=== PATIENT | male | born 1970 | race Caucasian/White ===

== ENCOUNTER 2021-03-09 15:51 | Inpatient (IN) | payer OTHER, BC ==
[~2021-03-09] VITALS: Ht 188 cm; Wt 126.2 kg
--- NOTE | 2021-03-09 16:03 | PHYS DOC ---
Past Medical History Past Medical History: No Pertinent History Past Surgical History: No Surgical History General Adult EDM: Chief Complaint: left ankle dislocation HPI: HPI: Patient is a 50-year-old male who was transferred here from [facility] emergency department due to right ankle dislocation. 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 He looked down , noted left ankle was dislocated, he then popped it back in place and was brought to the ER at [facility] from the job site from his employer. Patient states he is unable to bear weight on his foot. Patient states last oral intake was last evening. In the emergency department his syndrome, patient was evaluated, x- rays show dislocation of the right ankle. The ER physician did attempt to reduce the dislocation twice with conscious sedation but repeat x-rays shown persistent dislocation of the right ankle. The ER physician there contacted the foot and ankle specialist Dr. Mojica who recommend patient to be transferred to [place] emergency department for him to evaluate patient in the ER here. Review of Systems: Review of Systems: Constitutional: Denies fever or chills. [] Eyes: Denies change in visual acuity. [] HENT: Denies nasal congestion or sore throat. [] Respiratory: Denies cough or shortness of breath. [] Cardiovascular: Denies chest pain or edema. [] GI: Denies abdominal pain, nausea, vomiting, bloody stools or diarrhea. [] : Denies dysuria. [] Musculoskeletal: Positive for LEFT ankle pain, LEFT LEG PAIN Integument: Denies rash. [] Neurologic: Denies headache, focal weakness or sensory changes. [] Endocrine: Denies polyuria or polydipsia. [] Lymphatic: Denies swollen glands. [] Psychiatric: Denies depression or anxiety. [] Heart Score: C/O Chest Pain: N/A Risk Factors: Risk Factors: DM, Current or recent (<one month) smoker, HTN, HLP, family history of CAD, obesity. Risk Scores: Score 0 - 3: 2.5% MACE over next 6 weeks - Discharge Home Score 4 - 6: 20.3% MACE over next 6 weeks - Admit for Clinical Observation Score 7 - 10: 72.7% MACE over next 6 weeks - Early Invasive Strategies Physical Exam: PE: Constitutional: Well developed, well nourished, no acute distress, non-toxic appearance. [] HENT: Normocephalic, atraumatic, bilateral external ears normal, oropharynx moist, no oral exudates, nose normal. [] Eyes: PERRLA, EOMI, conjunctiva normal, no discharge. [] Neck: Normal range of motion, no tenderness, supple, no stridor. [] Cardiovascular:Heart rate regular rhythm, no murmur [] Lungs & Thorax: Bilateral breath sounds clear to auscultation [] Abdomen: Bowel sounds normal, soft, no tenderness, no masses, no pulsatile masses. [] Skin: Warm, dry, no erythema, no rash. [] Back: No tenderness, no CVA tenderness. [] Extremities: left leg and ankle in stir up splint. The splint was removed by Dr. MOJICA, EXAMINED SHOWN left ANKLE SWELLING WITH HEMATOMA, left ANKLE IS UNSTABLE. THERE IS GOOD DORSALID PEDIS PULSE BY DOPPLER. NO OPEN WOUND. There is tenderness to palpation along the proximal fibula. Neurologic: Alert and oriented X 3, normal motor function, normal sensory function, no focal deficits noted. [] Psychologic: Affect normal, judgement normal, mood normal. [] Current Patient Data: Labs: Current Medications Medications (Trade) Dose Ordered Sig/Onur Route PRN Reason Start Time Stop Time Status Last Admin Dose Admin Propofol (Diprivan) 200 mg 1X ONCE IV 03/09/21 16:15 03/09/21 16:18 DC 03/09/21 16:23 Sodium Chloride 1,000 ml @ 1,000 mls/hr 1X ONCE IV 03/09/21 16:15 03/09/21 17:14 DC 03/09/21 16:26 Ondansetron HCl (Zofran) 4 mg 1X ONCE IVP 03/09/21 16:15 03/09/21 16:18 DC 03/09/21 16:19 Fentanyl Citrate (Fentanyl 2ml Vial) 100 mcg STK-MED ONCE .ROUTE 03/09/21 16:29 03/09/21 16:29 DC Propofol (Diprivan) 200 mg 1X ONCE IV 03/09/21 16:45 03/09/21 17:17 DC Fentanyl Citrate (Fentanyl 2ml Vial) 100 mcg STK-MED ONCE .ROUTE 03/09/21 16:42 03/09/21 16:43 DC Cefazolin Sodium/ Dextrose 50 ml @ 100 mls/hr 1X ONCE IV 03/09/21 17:00 03/09/21 17:29 Fentanyl Citrate (Fentanyl 2ml Vial) 100 mcg 1X ONCE IVP 03/09/21 17:15 03/09/21 17:18 DC Acetaminophen (Tylenol) 650 mg PRN Q6HRS PRN PO MILD PAIN / TEMP > 100.3'F 03/09/21 17:15 Ondansetron HCl (Zofran) 4 mg PRN Q4HRS PRN IVP NAUSEA/VOMITING 03/09/21 17:15 Fentanyl Citrate (Fentanyl 2ml Vial) 25 mcg PRN Q3HRS PRN IVP SEVERE PAIN 7-10 03/09/21 17:15 Acetaminophen/ Hydrocodone Bitart (Lortab 5/325) 1 tab PRN Q4HRS PRN PO MILD PAIN, 2ND CHOICE 03/09/21 17:30 Acetaminophen/ Hydrocodone Bitart (Lortab 5/325) 2 tab PRN Q4HRS PRN PO MODERATE PAIN, SEVERE PAIN 03/09/21 17:30 Senna/Docusate Sodium (Senna Plus) 1 tab BID PO 03/09/21 21:00 Magnesium Hydroxide (Milk Of Magnesia) 2,400 mg PRN Q12HR PRN PO CONSTIPATION 03/09/21 17:30 EKG: EKG: [] Course & Med Decision Making: Course & Med Decision Making Pertinent Labs and Imaging studies reviewed. (See chart for details) Patient is a 50-year-old male who was brought here by EMS from [facility] emergency department due to left ankle dislocation, unstable. Patient was seen by jewel bearing facer Dr. Mojica in the ED, he attempted to reduce the dislocation but patient continued to have recurrent dislocation, left ankle is unstable. Dr. Mojica will take patient to the operating room for reduction. X-rays of the left tib-fib ultrasound show proximal fibula fracture, spiral fracture. Discussed with Dr. Goodson, hospitalist service, agreed to admit the patient Anupama Disclaimer: Dragon Disclaimer: This electronic medical record was generated, in whole or in part, using a voice recognition dictation system. Departure Departure Impression: Primary Impression: Unstable left ankle Additional Impressions: Dislocation of ankle, left, closed Fracture of left proximal fibula Disposition: 09 ADMITTED INPATIENT Admitting Physician: JOE (DR. ANDIE MORA) Condition: STABLE Procedural Sedation Proc Sed Indication: Left ankle dislocation Consent: I have discussed with the patient and/or the patient medical office representative the indication, alternatives, and the possible risks and /or complications of the planned procedure and the anesthesia methods. The patient and/or patient medical office representative appear to understand and agree to proceed. Pre-Sedation Documentation and Exam: Patient was awake, alert, oriented to place, time and person, no focal neurological deficit, RRR, LUNG SOUND CLEAR. Airway Assessment: normal. Prior History of Anesthesia Complications: none. ASA Classification: 1 Sedation/ Anesthesia Plan: IV PROPOFOL Medications Used: see nursing notes. Monitoring and Safety: The patient was placed on a cardiac rehab nurse and vital signs, pulse oximetry and level of consciousness were continuously evaluated throughout the procedure. The patient was closely monitored until recovery from the medications was complete and the patient had returned to baseline status. Respiratory therapy was on standby at all times during the procedure. (The following sections must be completed) Post-Sedation Vital Signs: SEE NURSE NOTES. Post-Sedation Exam:PATIENT IS BACK TO BASE LINE. f Complications: none. MARCUS SIGALA DO Mar 09, 2021 16:03
[2021-03-09] MEDS ORDERED: PROPOFOL 10 MG/ML (20ML) VIAL. IV ONE ×3 (16:15→18:06)
[2021-03-09] MEDS ORDERED: ONDANSETRON PF 4 MG/2 ML VIAL. IVP ONE (16:15)
[2021-03-09] MEDS ORDERED: IV NORMAL SALINE 1000ML BAG 1,000 ML IV ONE (16:15)
[2021-03-09 16:20] VITALS: BP 180/109
[2021-03-09] MEDS ORDERED: fentaNYL PF VIAL 100 MCG/2 ML VIAL ONE ×5 (16:29→19:50)
[2021-03-09] MEDS ORDERED: ACETAMINOPHEN 325 MG TABLET. PO PRN (17:15)
[2021-03-09] MEDS ORDERED: fentaNYL PF VIAL 100 MCG/2 ML VIAL IVP ONE (17:15)
[2021-03-09] MEDS ORDERED: ONDANSETRON PF 4 MG/2 ML VIAL. IVP PRN ×2 (17:15→20:15)
--- NOTE | 2021-03-09 17:21 | PDOC1 ---
History and Physical Date of Admission Date of Admission DATE: 03/09/21 TIME: 17:19 Identification/Chief Complaint Chief Complaint Left ankle pain Source Source: Patient History of Present Illness History of Present Illness Mr Lund is a 50-year-old male with PMHx insomnia that presented to [facility] ED in [place], [place] today with left ankle pain. Patient states prior to arrival patient was climbing down from the top of the roof down to a lower part of the roof and twisted his foot he felt a weird sensation in his left ankle, he then popped it back in place and was brought here from the job site from his employer. Patient states he is unable to bear weight on his foot. Patient states last oral intake was last evening. Vital Signs: initial VS: HR 107, 145/107, RR16 Attempted reduction x2 with fentanl, etomidate with no success. contacted [place], was transferred for podiatry consultation for likely unstable ankle. Ankle splinted, neurovascularly intact. Pain controlled with fentanyl. Denies smoking and alcohol use history, takes seroquel for sleep. Has had 2 doses of moderna COVID 19 vaccine. Labs with WBC 7.2, Hb 14.4, platelets 126, NA 140, K4.3, BUN 6, CR 0.6, glucose 99, calcium 7.3, vitamin D 25.3, bilirubin 0.7, AST 174, ALT 181, alkaline phosphatase 108, CK 274, albumin 3.4, rapid COVID-19 negative EKG sinus tachycardia rate of 106 bpm with leftward axis no ST elevations or T WI. QTc 475. Attempted repeat reduction in ED at [facility] with unstable ankle unable to reduce. X-rays of the left tib-fib show proximal fibula fracture, spiral fracture. Admitted for further care and operative repair of left ankle dislocation. Past Medical History Cardiovascular: No pertinent hx Pulmonary: No pertinent hx Psych: Other (insomnia) Past Surgical History Past Surgical History: No pertinent history Family History Family History Reviewed Family History: Family History Unknown Social History Smoke: No ALCOHOL: none Drugs: None Current Problem List Problem List Problems Medical Problems: (1) Dislocation of ankle, left, closed Status: Acute (2) Unstable left ankle Status: Acute Current Medications Current Medications Current Medications Propofol (Diprivan) 200 mg 1X ONCE IV Last administered on 03/09/21at 16:23; Start 03/09/21 at 16:15; Stop 03/09/21 at 16:18; Status DC Sodium Chloride 1,000 ml @ 1,000 mls/hr 1X ONCE IV Last administered on 03/09/21at 16:26; Start 03/09/21 at 16:15; Stop 03/09/21 at 17:14; Status DC Ondansetron HCl (Zofran) 4 mg 1X ONCE IVP Last administered on 03/09/21at 16:19; Start 03/09/21 at 16:15; Stop 03/09/21 at 16:18; Status DC Fentanyl Citrate (Fentanyl 2ml Vial) 100 mcg STK-MED ONCE .ROUTE ; Start 03/09/21 at 16:29; Stop 03/09/21 at 16:29; Status DC Propofol (Diprivan) 200 mg 1X ONCE IV ; Start 03/09/21 at 16:45; Stop 03/09/21 at 17:17; Status DC Fentanyl Citrate (Fentanyl 2ml Vial) 100 mcg STK-MED ONCE .ROUTE ; Start 03/09/21 at 16:42; Stop 03/09/21 at 16:43; Status DC Cefazolin Sodium/ Dextrose 50 ml @ 100 mls/hr 1X ONCE IV ; Start 03/09/21 at 17:00; Stop 03/09/21 at 17:29 Fentanyl Citrate (Fentanyl 2ml Vial) 100 mcg 1X ONCE IVP ; Start 03/09/21 at 17:15; Stop 03/09/21 at 17:18; Status DC Acetaminophen (Tylenol) 650 mg PRN Q6HRS PRN PO MILD PAIN / TEMP > 100.3'F; Start 03/09/21 at 17:15 Ondansetron HCl (Zofran) 4 mg PRN Q4HRS PRN IVP NAUSEA/VOMITING; Start 03/09/21 at 17:15 Fentanyl Citrate (Fentanyl 2ml Vial) 25 mcg PRN Q3HRS PRN IVP SEVERE PAIN 7-10; Start 03/09/21 at 17:15 Allergies Allergies: Coded Allergies: No Known Drug Allergies (Unverified , 03/09/21) ROS General: No: Chills, Night Sweats, Fatigue, Malaise, Appetite, Other PSYCHOLOGICAL ROS: No: Anxiety, Behavioral Disorder, Concentration difficultie, Decreased libido, Depression, Disorientation, Hallucinations, Hostility, Irritablity, Memory difficulties, Mood Swings, Obsessive thoughts, Physical abuse, Sexual abuse, Sleep disturbances, Suicidal ideation, Other Eyes: No Blurry vision, No Decreased vision, No Double vision, No Dry eyes, No Excessive tearing, No Eye Pain, No Itchy Eyes, No Loss of vision, No Photophobia, No Scotomata, No Uses contacts, No Uses glasses, No Other HEENT: No: Heacaches, Visual Changes, Hearing change, Nasal congestion, Nasal discharge, Oral lesions, Sinus pain, Sore Throat, Epistaxis, Sneezing, Snoring, Tinnitus, Vertigo, Vocal changes, Other ALLERGY AND IMMUNOLOGY: No: Hives, Insect Bite Sensitivity, Itchy/Watery Eyes, Nasal Congestion, Post Nasal Drip, Seasonal Allergies, Other Hematological and Lymphatic: No: Bleeding Problems, Blood Clots, Blood Chirinos sfusions, Brusing, Night Sweats, Pallor, Swollen Lymph Nodes, Other ENDOCRINE: No: Breast Changes, Galactorrhea, Hair Pattern Changes, Hot Flashes, Malaise/lethargy, Mood Swings, Palpitations, Polydipsia/polyuria, Skin Changes, Temperature Intolerance, Unexpected Weight Changes, Other Breast: No New/Changing Breast Lumps, No Nipple changes, No Nipple discharge, No Other Respiratory: No: Cough, Hemoptysis, Orthopnea, Pleuritic Pain, Shortness of breath, SOB with excertion, Sputum Changes, Stridor, Tachypnea, Wheezing, Other Cardiovascular: No Chest Pain, No Palpitations, No Orthopnea, No Paroxysmal Noc. Dyspnea, No Edema, No Lt Headedness, No Other Gastrointestinal: No Nausea, No Vomiting, No Abdominal Pain, No Diarrhea, No Constipation, No Melena, No Hematochezia, No Other Genitourinary: No Dysuria, No Frequency, No Incontinence, No Hematuria, No Retention, No Discharge, No Urgency, No Pain, No Flank Pain, No Other, No , No , No , No , No , No , No Musculoskeletal: Yes Gait Disturbance, Yes Joint Pain, Yes Joint Swelling; No Joint Stiffness, No Muscle Pain, No Muscular Weakness, No Pain In:, No Swelling In:, No Other Neurological: No Behavorial Changes, No Bowel/Bladder ControlChng, No Confusion, No Dizziness, No Gait Disturbance, No Headaches, No Impaired Coord/balance, No Memory Loss, No Numbness/Tingling, No Seizures, No Speech Problems, No Tremors, No Visual Changes, No Weakness, No Other Skin: No Dry Skin, No Eczema, No Hair Changes, No Lumps, No Mole Changes, No Mottling, No Nail Changes, No Pruritus, No Rash, No Skin Lesion Changes, No Other, No Acne Physical Exam General: Alert, Oriented X3, Cooperative, moderate distress HEENT: Atraumatic, PERRLA, EOMI, Mucous membr. moist/pink Lungs: Clear to auscultation, Normal air movement Heart: S1S2, RRR, no thrills, no rubs, no gallops, no murmurs Abdomen: Normal bowel sounds, Soft, No tenderness, No hepatosplenomegaly, No masses Rectal Exam: not examined Extremities: No clubbing, No cyanosis, Normal pulses, Other (left ankle swollen, splinted) Skin: No rashes, No breakdown, No significant lesion Neuro: Normal speech, Strength at 5/5 X4 ext, Normal tone, Sensation intact, Cranial nerves 3-12 NL, Reflexes 2+ Psych/Mental Status: Mental status NL, Mood NL Images Images XR EXAM OF ANKLE_LEFT 3V 03/09/21 at 1023AM Findings: There is lateral and posterior dislocation of the talus with respect to the tibia. There is widening of the space between the distal tibia and fibula consistent with disruption of the distal interosseous ligament and anterior/posterior tibiofibular ligaments and disruption of the deltoid ligament. Small intra- articular loose bodies are evident. Otherwise no acute fracture is seen. No lytic process is seen. IMPRESSION: Dislocation of the left ankle with ligament tears. Intra-articular loose bodies are seen but no acute fracture is evident. Left ankle 3 views. Postreduction ankle dislocation 3 views were taken of the left ankle. Comparison is made with the earlier images. There is persistent lateral subluxation of the talus relative to the tibia. There is also mild posterior subluxation. Positioning is only mildly improved compared to the original images. Ankle is in a splint. IMPRESSION: 1. Mild improvement but persistent lateral subluxation of the talus relative to the tibia. Repeat Tib/fib and ankle radiographs 1700: 1. Attempted closed reduction of left ankle fracture dislocation with persistent widening of the ankle mortise which is widened by approximately 11 mm medially. Subtle contour deformity involving the lateral malleolus could represent nondisplaced fracture. 2. There is a obliquely oriented fracture involving the proximal fibular diaphysis. Findings are not significantly displaced although single view is provided. VTE Prophylaxis Ordered VTE Prophylaxis Devices: No VTE Pharmacological Prophylaxi: Yes Assessment/Plan Assessment/Plan A/P: Dislocation of ankle, left, closed - unstable ankle unable to reduce despite mu ltiple attempts. No further testing required prior to planned surgery. PO and IV pain meds ordered Transaminitis - unclear etiology, patient denies alcohol use, possibly related to seroquel. Will trend. COVID 19 negative Thrombocytopenia - unclear etiology, potentially related to seroquel. will trend Vitamin D insufficiency - daily cholecalciferol replacement Insomnia - on seroquel for sleep FEN- NPO PPX -post op asa FULL CODE Dispo - inpatient Justifications for Admission General Conditions Poss tachycardia?: Yes Justification for admission: Patient has tachycardia (> 100 beats per minute) which is not readily corrected by appropriate treatment within 12 to 24 hours. Other Justification ANDIE MORA MD Mar 09, 2021 17:21
--- NOTE | 2021-03-09 17:21 | PDOC2 ---
CONSULT Date of Consult Date of Consult DATE: 03/09/21 TIME: 17:19 Reason for Consult Reason for Consult: Left ankle fracture Source Source: Patient History of Present Illness Reason for Visit: Patient slid and fell on the roof while at work and sustained an external rotation of the left ankle. He denied loss of consciousness, injury elsewhere but the left ankle. The injury was sustained at 8 AM. Subsequent evaluation at [place] consisted of x-ray suggesting significant diastases to the medial gutter space. Close reduction was attempted twice and failed twice. The fracture was also noted significantly unstable which was concerning for medial skin tenting, vascular/tendon impingement or entrapment. Patient was then transferred to [place] for further reduction or possible surgical intervention. At bedside, patient relates upwards to 5 out of 10 throbbing sharp pain to the medial ankle. Patient denies any numbness or tingling sensation. Patient denies any cold sensation to the foot. Patient denied prior history of nonunion or delayed union. He is overall healthy, non-smoker, nondiabetic. Current Problem List Problem List Problems Medical Problems: (1) Dislocation of ankle, left, closed Status: Acute (2) Unstable left ankle Status: Acute Current Medications Current Medications Current Medications Propofol (Diprivan) 200 mg 1X ONCE IV Last administered on 03/09/21at 16:23; Start 03/09/21 at 16:15; Stop 03/09/21 at 16:18; Status DC Sodium Chloride 1,000 ml @ 1,000 mls/hr 1X ONCE IV Last administered on 03/09/21at 16:26; Start 03/09/21 at 16:15; Stop 03/09/21 at 17:14; Status DC Ondansetron HCl (Zofran) 4 mg 1X ONCE IVP Last administered on 03/09/21at 16:19; Start 03/09/21 at 16:15; Stop 03/09/21 at 16:18; Status DC Fentanyl Citrate (Fentanyl 2ml Vial) 100 mcg STK-MED ONCE .ROUTE ; Start 03/09/21 at 16:29; Stop 03/09/21 at 16:29; Status DC Propofol (Diprivan) 200 mg 1X ONCE IV ; Start 03/09/21 at 16:45; Stop 03/09/21 at 17:17; Status DC Fentanyl Citrate (Fentanyl 2ml Vial) 100 mcg STK-MED ONCE .ROUTE ; Start 02/26 07/19 at 16:42; Stop 03/09/21 at 16:43; Status DC Cefazolin Sodium/ Dextrose 50 ml @ 100 mls/hr 1X ONCE IV ; Start 03/09/21 at 17:00; Stop 03/09/21 at 17:29 Fentanyl Citrate (Fentanyl 2ml Vial) 100 mcg 1X ONCE IVP ; Start 03/09/21 at 17:15; Stop 03/09/21 at 17:18; Status DC Acetaminophen (Tylenol) 650 mg PRN Q6HRS PRN PO MILD PAIN / TEMP > 100.3'F; Start 03/09/21 at 17:15 Ondansetron HCl (Zofran) 4 mg PRN Q4HRS PRN IVP NAUSEA/VOMITING; Start 03/09/21 at 17:15 Fentanyl Citrate (Fentanyl 2ml Vial) 25 mcg PRN Q3HRS PRN IVP SEVERE PAIN 7-10; Start 03/09/21 at 17:15 Allergies Allergies: Coded Allergies: No Known Drug Allergies (Unverified , 03/09/21) ROS Review of System CONSTITUTIONAL: No fever. No chills. No dizziness. No weakness. CARDIOVASCULAR: No chest pain. No palpitations. No lower extremity edema. RESPIRATORY: No shortness of breath, cough, pain with respiration. No hemoptysis. No dyspnea. GASTROINTESTINAL: Normal appetite. No nausea, vomiting, diarrhea. GENITOURINARY: No frequency, urgency, nocturia. No hematuria or dysuria. MUSCULOSKELETAL: Refer to HPI INTEGUMENTARY: No abrasions, lymphangitis. NEUROLOGIC: No numbness or tingling of the extremities. No weakness. PSYCHIATRIC: No confusion. ENDOCRINE: No fatigue. No weakness. HEMATOLOGICAL: No bleeding. No petechiae. No bruising. ALLERGIES: No asthma. No urticaria Physical Exam Physical Exam General: AOx3, pleasant without distress Left lower extremity exam: VASC: -DP palpable, PT nonpalpable. Bedside Doppler noted biphasic PT on the left lower extremity - Capillary refill <5 seconds - [+] non-pitting edema circumferentially to the ankle joint - [-] Ecchymosis NEURO: - Gross sensation intact via light touch - [-] Tinel sign along the sural n. DERM: - Skin envelope intact without fx blisters, however there is a significant skin tenting to the medial malleolus - Skin line is diminished -The foot is sitting in a significant adductus position concerning for PT entrapment/tenting to the posterior ankle MUSC: - [+] TTP to the distal medial mal -Significant forefoot adduction and plantar flexion concerning for PT entrapment -Gross instability to the talus across the ankle joint - [-] TTP to the 5th styloid process, cuboid, navicular, calc [id number] squeeze - Able to move digits x 5 - Muscle strength deferred - Calf is soft and nontender -No TTP to Lisfranc stress test or to the medial plantar compartment Assessment/Plan Assessment/Plan Bimalleolar equivalent left ankle fracture with significant medial gutter diastases, syndesmotic joint diastases - Discussed with Pt the nature and prognosis of left ankle bimalleolar fracture, unstable, and the therapeutic/surgical options for pt's condition. Discussed with Pt about need of surgical repair of the injured ankle including detail procedure, risks vs benefits of procedure, and pre-/post-op courses. - Closed reduction was performed under conscious sedation, and bulky read posterior splint with sugar tong was applied with ankle held inverted and near 90 degrees. Post-reduction film continued to remark significant diastases to the medial gutter. In the setting of adducted and plantarflexed forefoot concerning for PT entrapment or incarceration, the decision was made to bedside perform sterile and minimal stab incision measured 1 to 1.5 cm just at the posterior margin of the medial malleolus near the ankle joint level. Betadine skin prep was carried out and a straight linear incision was performed. The deep tissue fascia was noted ruptured along with deltoid ligament. Moderate amount of hematoma was exsanguinated from the mini open incision. The PT tendon was freed from the posterior medial gutter. 500 cc of saline was used to irrigate the medial ankle incision site. Then 2 simple interrupted 3-0 nylon was used to approximate the skin. The site was dressed with Xeroform. Then another close reduction was performed and the left lower extremity was splinted with ankle held in near 90 degrees. Post reduction x-ray was improved however still noted diastases to the medial ankle gutter. I discussed with patient that due to the unstable nature of the ankle fracture, limited evaluation and reduction of the PT tendon from the ankle gutter, I recommended emergent indirect syndesmotic repair to stabilize the ankle and the further investigate the PT tendon the flexor tendon, and deltoid ligament with possible direct repair as well. Patient understands that due to the swelling status, there is slightly increased risk of delayed skin healing, complications. However given the unstable nature, and PT tendon status concern, patient consented for the emergent surgery with open reduction internal fixation of left ankle with possible PT, deltoid repair. In addition, I may also investigate the tibialis anterior tendon and make sure that it is in good condition. -Status post 2 g of Ancef IV -Remain n.p.o. -Pending Covid swab test -Patient to be admitted as an inpatient after surgery, depends on intraoperative finding, we may stage for soft tissue repair in a few days. Because an emergent mini open incision was made at the bedside for reduction, I will treat this as an open fracture as well with 3 days of IV antibiotics after washout and repair. -Elevate surgical foot with toes above the heart 45 minutes/h -Ice behind the knee -Strict nonweightbearing to left lower extremity -3 days of IV Ancef after surgery Informed Consent Discussion: I have discussed the purpose, risks, benefits, and alternatives to the procedure and plan of care including potential side effects and complications, both of which may be severe and require additional surgery and/or procedures to treat this with the patient/guardian(s). We discussed the risks and benefits of alternative treatment options and the likelihood of achieving the desired outcome with surgery. Procedure specific discussion is documented below. The risks, benefits and alternatives of the proposed surgery were discussed with the patient, including the option of further non-operative treatment. The possibility of perioperative complications leading to disability and were explained. Patient understands the risks of surgery include but are not limited to failure of the procedure, delayed or non-healing wound, bleeding, infection, venous thrombus/embolus, nerve, vessel, tendon and bone damage, the complications of anesthesia, reaction to sutures or other implanted material, stiffness, chronic pain/swelling, malunion/nonunion, the need for other operations and future revision surgery. No guarantees were given or implied. The patient's questions were answered in depth and patient is willing to proceed. GARRICK SAWANT DPM Mar 09, 2021 17:21
--- NOTE | 2021-03-09 17:26 | RAD ---
XR LT TIBIA + FIBULA, XR EXAM OF ANKLE_LEFT 3V 03/09/2021 5:21 PM INDICATION: Postreduction of left ankle dislocation COMPARISON: None available. TECHNIQUE: Single view left ankle and 2 views of the left tibia and fibula are provided. FINDINGS/ IMPRESSION: 1. Attempted closed reduction of left ankle fracture dislocation with persistent widening of the ankl e mortise which is widened by approximately 11 mm medially. Subtle contour deformity involving the la teral malleolus could represent nondisplaced fracture. 2. There is a obliquely oriented fracture involving the proximal fibular diaphysis. Findings are not significantly displaced although single view is provided. Electronically signed by: Adriana Stewart MD (03/09/2021 5:24 PM) [id number]
--- NOTE | 2021-03-09 17:29 | RAD ---
Left ankle 3 views. HISTORY: Post reduction 3 views were taken of the left ankle. Ankle is been reduced into better position compared to the prio r image. There is still mild widening of the ankle mortise medially. IMPRESSION: 1. Improved positioning of the ankle dislocation. Electronically signed by: Harsha Rodriguez MD (03/09/2021 5:27 PM) [facility]
[2021-03-09] MEDS ORDERED: MAGNESIUM HYDROXIDE 2,400 MG/30 ML ORAL.SUSP. PO PRN (17:30)
[2021-03-09] MEDS ORDERED: HYDROcodone/APAP 5/325MG 1 TAB TABLET PO PRN ×2 (17:30)
[2021-03-09 17:43] LABS: BASO % 1 % (0-3); EOS % 0 % (0-3); HEMATOCRIT 41.8 % (39.0-53.0); HEMOGLOBIN 14.4 g/dL (13.0-17.5); LYMPH # 1.1 x10^3/uL (1.0-4.8); LYMPH % 15 % (24-48); MEAN CORPUSCULAR HEMOGLOBIN 34 pg (25-35); MEAN CORPUSCULAR HGB CONC 35 g/dL (31-37); MEAN CORPUSCULAR VOLUME 98 fL (79-100); MONO # 0.9 x10^3/uL (0.0-1.1); MONO % 12 % (0-9); NEUT # 5.2 x10^3/uL (1.8-7.7); NEUT % 72 % (31-73); PLATELET COUNT 126 x10^3/uL (140-400); RED BLOOD COUNT 4.27 x10^6/uL (4.30-5.70); RED CELL DISTRIBUTION WIDTH 14.2 % (11.5-14.5); WHITE BLOOD COUNT 7.2 x10^3/uL (4.0-11.0)
[2021-03-09 17:54] LABS: CALCIUM 7.3 mg/dL (8.5-10.1); CREATININE 0.6 mg/dL (0.7-1.3); GFR 142.6; POTASSIUM 4.3 mmol/L (3.5-5.1)
[2021-03-09] MEDS ORDERED: BUPIVACAINE MPF 0.25% 30 ML VIAL. ONE (17:58)
[2021-03-09 18:00] LABS: ALBUMIN 3.4 g/dL (3.4-5.0); ALBUMIN/GLOBULIN RATIO 1.1 (1.0-1.7); TOTAL BILIRUBIN 0.7 mg/dL (0.2-1.0); TOTAL PROTEIN 6.6 g/dL (6.4-8.2)
[2021-03-09] MEDS ORDERED: GLYCOPYRROLATE 1 MG/5 ML VIAL. ONE (18:06)
[2021-03-09] MEDS ORDERED: ROCURONIUM 50 MG/5 ML VIAL. ONE (18:07)
[2021-03-09] MEDS ORDERED: LIDOCAINE 2% PF 5 ML VIAL. ONE (18:07)
[2021-03-09] MEDS ORDERED: DEXAMETHASONE SOD PHOS 4 MG/ML VIAL ONE (18:07)
[2021-03-09] MEDS ORDERED: ONDANSETRON PF 4 MG/2 ML VIAL. ONE (18:07)
[2021-03-09] MEDS ORDERED: SUCCINYLCHOLINE 200 MG/10 ML VIAL. ONE (18:08)
[2021-03-09] MEDS: fentaNYL PF VIAL 100 MCG/2 ML VIAL IVP PRN ×3 (18:17→23:49)
[2021-03-09] MEDS ORDERED: MIDAZOLAM HCL/PF 2 MG/2 ML VIAL. ONE (18:20)
[2021-03-09] MEDS ORDERED: HYDROmorphone 2 MG/ML VIAL IVP PRN (18:30)
[2021-03-09] MEDS ORDERED: PROCHLORPERAZINE 10 MG/2 ML VIAL. IVP PRN (18:30)
[2021-03-09] MEDS ORDERED: fentaNYL PF VIAL 100 MCG/2 ML VIAL IVP PRN (18:30)
[2021-03-09] MEDS ORDERED: IV RINGERS,LACTATED 1000ML 1,000 ML IV SCH (18:30)
[2021-03-09] MEDS ORDERED: MORPHINE SULFATE 2 MG/ML INJ. IVP PRN (18:30)
[2021-03-09] MEDS ORDERED: FAMOTIDINE 20 MG/2 ML VIAL ONE (18:46)
[2021-03-09] MEDS ORDERED: MORPHINE SULFATE 10 MG/ML VIAL. ONE (18:47)
--- NOTE | 2021-03-09 18:53 | EKG ---
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
[2021-03-09] MEDS ORDERED: KETOROLAC 30 MG/ML VIAL. ONE (19:14)
[2021-03-09] MEDS ORDERED: SEVOFLURANE 61 TO 120 MINUTES. IH ONE (19:43)
[2021-03-09] MEDS ORDERED: MORPHINE SULFATE 2 MG/ML INJ. ONE (20:10)
[2021-03-09] MEDS ORDERED: DEXTROSE 50% 25 GM / 50ML DISP.SYRIN. IV PRN (20:15)
[2021-03-09] MEDS ORDERED: POLYETHYLENE GLYCOL 3350 17 GM PACKET. PO PRN (20:15)
--- NOTE | 2021-03-09 20:42 | PDOC4 ---
OPERATIVE NOTE Date: Date: Mar 09, 2021 Pre-Op Diagnosis: Left bimalleolar ankle fracture with syndesmotic joint instability Post-Op Diagnosis: Same as above Procedure Performed: Left syndesmotic joint stabilization, laciniate ligament repair and deltoid ligament repair Surgeon: Garrick Sawant DPM Anesthesia Type: General Blood Loss: 5 cc Specimans Obtained: None Findings: Intraoperative finding remarked intact PT tendon without split tear or significant degeneration or hematoma within the substance. It was not incarcerated in the posterior tibia or medial ankle gutter. The tibialis anterior tendon was found intact as well without significant intrasubstance degeneration or hematoma. However, the deep and superficial deltoid ligaments were significantly shredded. The saphenous nerve, vein and tibial neurovascular bundle were protected and not compromised throughout the soft tissue and compartment exploration. There were 2 pinpoint talar shoulder OCD measures less than 2 x 1 mm. The loose body was removed from the ankle joint. There was a high proximal fibula fracture, minimally displaced without significant fibular shortening. After 2 syndesmotic screw repair, stress view was negative for any diastases to the tib-fib or the medial gutter space. Complications: None Operative Note: Under mild sedation, patient was brought into the operating room and placed on an operating table in a supine position. Following a formal timeout, patient's identity, procedure and procedure sites were confirmed. Following IV prophylactic antibiotics, general anesthesia, a well-padded thigh tourniquet was placed to the left lower extremity. Then the left lower extremity was then scrubbed, prepped and draped using standard aseptic techniques. An Esmarch was used to exsanguinate the left foot and ankle and tourniquet was inflated to 250 millimercury. The attention was first directed to the medial posterior incision where approximately 1.5 cm linear incision was noted to the posterior margin of the distal tibia. The suture was removed. The incisional wound was further explored which remarked completely shredded superficial and deep deltoid ligament. There was invagination of the eligible ligament into the medial gutter space. The PT tendon was encountered with also compromised the laciniate ligament as well. The PT tendon was preserved without intrasubstance hematoma or degeneration. It was not incarcerated or in trapped in the posterior tibia or medial gutter. The posterior neurovascular bundle was not explored or violated and FDL compartment was intact. The surgical site was irrigated with copious saline solution consisted of 3 L of saline. Then the attention was directed to the anterior medial ankle just medial to the tibialis anterior tendon. Per literature, there were reported cases where the tibialis anterior tendon was entrapped in the anterior medial ankle gutter and subsequently precluded the talus reduction in the ankle mortise. Upon clinical palpation, there was a palpable dell to the tibialis anterior tendon course. The decision was made to make a straight linear incision approximately 1.5 cm over the medial aspect of the suspected tibialis anterior tendon. The incision was carried deep with blunt dissection. The extensor retinaculum was encountered. An underlying tibialis anterior was isolated and identified. There was no intrasubstance hematoma or degeneration or insufficiency. The site was irrigated with copious saline. Further investigation of the lateral talar dome remarked to pinpoint OCD's at the shoulder measures approximately 1 x 2 mm, 1 mm in depth. The loose body was removed from the ankle gutter and joint. Then the site was irrigated with copious saline solution again. The attention was directed to the lateral ankle. Use intraoperative fluoroscopy, a 3- hole plate for syndesmotic joint repair was overlaid on top of the skin to identify and determine the level and length of incision. Then a standard lateral approach was performed. Great care was taken to identify and retract all the neurovascular bundles including the superficial peroneal nerve. All bleeders were cauterized as necessary. Using sharp and blunt dissection, incision was taken deep to periosteum which was incised. The 3-hole plate was provisionally fixated to the lateral fibula with olive wires. Intraoperative x- ray remarked adequate hardware position, length. Then a reduction clamp was used to reduce the diastases between the tib-fib where the ankle mortise remarked adequate alignment and spacing. Then using standard AO techniques, 3.5 mm cortical, nonlocking screws were placed from lateral to medial with ankle held in dorsiflexion. To share the stress from the 2 syndesmotic screws and holes, the decision was made to put a 3.5mm nonlocking cortical screw to the distal hole to reinforce the construct. Intraoperative x-ray remarked adequate hardware position, length. The proximal fibular fracture was not displaced. Stress view of the syndesmotic joint was negative. The surgical site was irrig ated with copious saline solution. The surgical sites were irrigated with copious saline solution. The superficial and deep deltoid ligament, laciniate ligament and extensor retinaculum were repaired with 2-0 Vicryl. All the skin incisions were closed in layers with 4 Monocryl and 4-0 nylon. Then the surgical sites were anesthetized with 20 cc of 0.25% Marcaine plain. The sites were dressed with Betadine soaked Adaptic, 4 x 4, ABD. The left lower extremity was then immobilized in a modified Jalloh comp ression splint with ankle held near 90 degrees. Then the tourniquet was deflated and adequate digital perfusion was noted. Patient tolerated the procedure and anesthesia well and then transferred to PACU for continuous recovery. Pending left ankle 3 view and tib-fib x-ray. Dispo: Because emergent bedside skin incision was made to aid the reduction of the ankle mortise, this would be managed as an open fracture. Because the wound was clean and sterilely prepped, a 2-day course of Ancef were to be adequate after surgery. GARRICK SAWANT DPM Mar 09, 2021 20:42
[2021-03-09] MEDS ORDERED: SENNOSIDES/DOCUSATE 8.6/50MG TABLET. PO SCH (21:00)
[2021-03-09 21:05] VITALS: BP 152/91
[2021-03-09] MEDS: GABAPENTIN 100 MG CAPSULE. PO SCH (21:18)
[2021-03-09] MEDS: QUEtiapine 25 MG TABLET. PO SCH (21:18)
[2021-03-09] MEDS: oxyCODONE/APAP 5/325 1 TAB TABLET PO PRN (21:19)
[2021-03-09] MEDS: ACETAMINOPHEN 325 MG TABLET. PO SCH (21:19)
[2021-03-09 21:20] VITALS: BP 149/93
[2021-03-09 21:50] VITALS: BP 144/91
[2021-03-09 22:50] VITALS: BP 138/83
[2021-03-09 23:50] VITALS: BP 122/77
--- NOTE | 2021-03-10 00:26 | RAD ---
XR EXAM OF ANKLE_LEFT 3V, XR LT TIBIA + FIBULA History: Reason: pacu, post-op / Spl. Instructions: / History: Technique: 2 views left tibia and fibula and 3 views left ankle Comparison: March 09, 2021 Findings: Acute comminuted left proximal fibular fracture with mild displacement, unchanged alignment. Mild kne e DJD. Interval syndesmotic fusion. Improved alignment of the ankle mortise. Plantar calcaneal spur. Overlyi ng splint material. Impression: 1. Interval postoperative changes syndesmotic fusion with improved alignment of the ankle mortise. 2. Comminuted proximal fibular fracture, unchanged alignment. Electronically signed by: Arnoldo Coffey DO (03/10/2021 12:24 AM) [facility]
[2021-03-10 03:00] VITALS: BP 129/84
[2021-03-10] MEDS: fentaNYL PF VIAL 100 MCG/2 ML VIAL IVP PRN ×2 (05:09→19:57)
[2021-03-10 07:00] VITALS: BP 150/101
[2021-03-10] MEDS: oxyCODONE/APAP 5/325 1 TAB TABLET PO PRN ×4 (07:37→21:54)
[2021-03-10] MEDS: SENNOSIDES/DOCUSATE 8.6/50MG TABLET. PO SCH (07:41)
[2021-03-10] MEDS: GABAPENTIN 100 MG CAPSULE. PO SCH ×3 (07:41→20:01)
[2021-03-10] MEDS: ACETAMINOPHEN 325 MG TABLET. PO SCH ×3 (07:42→20:01)
[2021-03-10 08:55] LABS: HEMATOCRIT 40.6 % (39.0-53.0); HEMOGLOBIN 13.8 g/dL (13.0-17.5); RED BLOOD COUNT 4.11 x10^6/uL (4.30-5.70); RED CELL DISTRIBUTION WIDTH 14.4 % (11.5-14.5)
[2021-03-10 09:20] LABS: ALBUMIN 3.2 g/dL (3.4-5.0); ALBUMIN/GLOBULIN RATIO 0.9 (1.0-1.7); CALCIUM 7.6 mg/dL (8.5-10.1); CREATININE 0.7 mg/dL (0.7-1.3); GFR 119.4; POTASSIUM 4.2 mmol/L (3.5-5.1); TOTAL BILIRUBIN 0.9 mg/dL (0.2-1.0); TOTAL PROTEIN 6.8 g/dL (6.4-8.2)
[2021-03-10 11:00] VITALS: BP 148/95
--- NOTE | 2021-03-10 13:37 | PDOC ---
[employer] PROGRESS NOTE Date of Service DOS: DATE: 03/10/21 TIME: 13:26 Chief Complaint Chief Complaint Dislocation of ankle, left, closed - unstable ankle unable to reduce despite multiple attempts. to OR yesterday Transaminitis - unclear etiology, patient denies alcohol use Thrombocytopenia - related to seroquel. will trend Vitamin D insufficiency - daily cholecalciferol replacement Insomnia - on seroquel for sleep Vitals/I&O Vitals/I&O: Vital Signs Date Time Temp Pulse Resp B/P (MAP) Pulse Ox O2 Delivery O2 Flow Rate FiO2 03/10/21 11:00 98.2 103 18 148/95 (112) 94 Room Air 98.2 03/09/21 20:25 10 I & O 03/09/21 03/09/21 03/10/21 15:00 23:00 07:00 Intake Total 1050 ml 480 ml Output Total 5 ml 750 ml Balance 1045 ml -270 ml Physical Exam General: Alert, Oriented X3, Cooperative, moderate distress Abdomen: Normal bowel sounds, Soft, No tenderness, No hepatosplenomegaly, No masses Extremities: No clubbing, No cyanosis, Normal pulses, Other (left ankle swollen, splinted) Skin: No rashes, No breakdown, No significant lesion Labs Labs: Laboratory Tests Test 03/09/21 17:27 03/09/21 17:30 03/09/21 17:34 03/10/21 07:10 SARS-CoV-2 RNA (ELEN) Negative (Negative) SARS-CoV-2 Antigen (Rapid) Negative (NEGATIVE) White Blood Count 7.2 x10^3/uL (4.0-11.0) 6.0 x10^3/uL (4.0-11.0) Red Blood Count 4.27 x10^6/uL (4.30-5.70) 4.11 x10^6/uL (4.30-5.70) Hemoglobin 14.4 g/dL (13.0-17.5) 13.8 g/dL (13.0-17.5) Hematocrit 41.8 % (39.0-53.0) 40.6 % (39.0-53.0) Mean Corpuscular Volume 98 fL (79-100) 99 fL (79-100) Mean Corpuscular Hemoglobin 34 pg (25-35) 34 pg (25-35) Mean Corpuscular Hemoglobin Concent 35 g/dL (31-37) 34 g/dL (31-37) Red Cell Distribution Width 14.2 % (11.5-14.5) 14.4 % (11.5-14.5) Platelet Count 126 x10^3/uL (140-400) 118 x10^3/uL (140-400) Neutrophils (%) (Auto) 72 % (31-73) Lymphocytes (%) (Auto) 15 % (24-48) Monocytes (%) (Auto) 12 % (0-9) Eosinophils (%) (Auto) 0 % (0-3) Basophils (%) (Auto) 1 % (0-3) Neutrophils # (Auto) 5.2 x10^3/uL (1.8-7.7) Lymphocytes # (Auto) 1.1 x10^3/uL (1.0-4.8) Monocytes # (Auto) 0.9 x10^3/uL (0.0-1.1) Eosinophils # (Auto) 0.0 x10^3/uL (0.0-0.7) Basophils # (Auto) 0.0 x10^3/uL (0.0-0.2) Sodium Level 140 mmol/L (136-145) 139 mmol/L (136-145) Potassium Level 4.3 mmol/L (3.5-5.1) 4.2 mmol/L (3.5-5.1) Chloride Level 105 mmol/L (98-107) 103 mmol/L (98-107) Carbon Dioxide Level 26 mmol/L (21-32) 29 mmol/L (21-32) Anion Gap 9 (6-14) 7 (6-14) Blood Urea Nitrogen 6 mg/dL (8-26) 8 mg/dL (8-26) Creatinine 0.6 mg/dL (0.7-1.3) 0.7 mg/dL (0.7-1.3) Estimated GFR (Cockcroft-Gault) 142.6 119.4 BUN/Creatinine Ratio 10 (6-20) 11 (6-20) Glucose Level 99 mg/dL (70-99) 153 mg/dL (70-99) Calcium Level 7.3 mg/dL (8.5-10.1) 7.6 mg/dL (8.5-10.1) Ferritin 710 ng/mL (26-388) Total Bilirubin 0.7 mg/dL (0.2-1.0) 0.9 mg/dL (0.2-1.0) Aspartate Amino Transf (AST/SGOT) 174 U/L (15-37) 155 U/L (15-37) Alanine Aminotransferase (ALT/SGPT) 181 U/L (16-63) 163 U/L (16-63) Alkaline Phosphatase 108 U/L (46-116) 95 U/L (46-116) Creatine Kinase 274 U/L (39-308) Total Protein 6.6 g/dL (6.4-8.2) 6.8 g/dL (6.4-8.2) Albumin 3.4 g/dL (3.4-5.0) 3.2 g/dL (3.4-5.0) Albumin/Globulin Ratio 1.1 (1.0-1.7) 0.9 (1.0-1.7) 25-Hydroxy Vitamin D Total 25.3 ng/mL (30-100) Thyroid Stimulating Hormone (TSH) 3.687 uIU/mL (0.358-3.74) Assessment and Plan Assessmemt and Plan Problems Medical Problems: (1) Dislocation of ankle, left, closed Status: Acute (2) Fracture of left proximal fibula Status: Acute (3) Unstable left ankle Status: Acute Comment Review of Relevant I have reviewed the following items wes (where applicable) has been applied. Medications: Current Medications Medications (Trade) Dose Ordered Sig/Onur Route PRN Reason Start Time Stop Time Status Last Admin Dose Admin Propofol (Diprivan) 200 mg 1X ONCE IV 03/09/21 16:15 03/09/21 16:18 DC 03/09/21 16:23 Sodium Chloride 1,000 ml @ 1,000 mls/hr 1X ONCE IV 03/09/21 16:15 03/09/21 17:14 DC 03/09/21 16:26 Ondansetron HCl (Zofran) 4 mg 1X ONCE IVP 03/09/21 16:15 03/09/21 16:18 DC 03/09/21 16:19 Cefazolin Sodium/ Dextrose 50 ml @ 100 mls/hr 1X ONCE IV 03/09/21 17:00 03/09/21 17:29 DC 03/09/21 17:26 Fentanyl Citrate (Fentanyl 2ml Vial) 100 mcg 1X ONCE IVP 03/09/21 17:15 03/09/21 17:18 DC 03/09/21 16:43 Fentanyl Citrate (Fentanyl 2ml Vial) 25 mcg PRN Q3HRS PRN IVP SEVERE PAIN 7-10 03/09/21 17:15 03/10/21 05:09 Bupivacaine HCl (Sensorcaine Mpf 0.25%) 30 ml STK-MED ONCE .ROUTE 03/09/21 17:58 03/09/21 17:58 DC 03/09/21 18:57 Fentanyl Citrate (Fentanyl 2ml Vial) 50 mcg PRN Q5MIN PRN IVP MODERATE PAIN 4-6 03/09/21 18:30 03/09/21 20:23 DC 03/09/21 18:33 Ringer's Solution 1,000 ml @ 30 mls/hr Q24H IV 03/09/21 18:30 03/09/21 20:23 DC 03/09/21 18:30 Senna/Docusate Sodium (Senna Plus) 1 tab DAILY PO 03/10/21 09:00 03/10/21 07:41 Gabapentin (Neurontin) 100 mg TID PO 03/09/21 21:00 03/10/21 07:41 Acetaminophen (Tylenol) 650 mg TID PO 03/09/21 21:00 03/10/21 07:42 Oxycodone/ Acetaminophen (Percocet 5/325) 1 tab QIDPRN PRN PO SEVERE PAIN 03/09/21 20:15 03/10/21 11:17 Cefazolin Sodium/ Dextrose 50 ml @ 100 mls/hr Q8HRS IV 03/09/21 22:00 03/12/21 21:59 03/10/21 05:26 Quetiapine Fumarate (SEROquel) 50 mg QHS PO 03/09/21 21:15 03/09/21 21:18 Justifications for Admission General Conditions Poss tachycardia?: Yes Justification for admission: Patient has tachycardia (> 100 beats per minute) which is not readily corrected by appropriate treatment within 12 to 24 hours. Other Justification TRI FRANCES MD Mar 10, 2021 13:37
[2021-03-10] MEDS ORDERED: ERGOCALCIFEROL (VITAMIN D2) 50,000 UNIT CAPSULE. PO SCH (14:00)
[2021-03-10 15:00] VITALS: BP_SYST 122; BP_SYST 162; BP_DIAS 55; BP_DIAS 99
--- NOTE | 2021-03-10 17:57 | PDOC ---
PROGRESS NOTES Date of Service DATE: 03/10/21 TIME: 17:50 Subjective Subjective [DOS March 09, 2021] left ankle syndesmotic repair, deltoid ligament repair in the setting of a bimalleolar [place] ankle fracture Patient was seen at bedside. Denies overnight events or constitutional symptoms. The dressing has been kept clean and dry and tolerated well. The surgical foot is elevated on two pillows with the toes near the heart level. The pain is well managed with current medicine, and rated 5/10, occasional throbbing and burning sensation localized to anterior lateral ankle. Otherwise, patient has been working well with physical therapy. Currently, he is on 2 g Ancef 4 times daily. Objective Objective Vital Signs Date Time Temp Pulse Resp B/P (MAP) Pulse Ox O2 Delivery O2 Flow Rate FiO2 03/10/21 15:00 98.5 105 18 162/99 (120) 95 Room Air 98.5 03/09/21 20:25 10 Intake and Output 03/10/21 07:00 Intake Total 1530 ml Output Total 755 ml Balance 775 ml Intake Oral 480 ml IV Total 1050 ml Output Urine Total 750 ml Estimated Blood Loss 5 ml Physical Exam Physical Exam General: Pleasant without apparent distress, AOx3 Left lower extremity focused Dermatology: -Left lower extremity is immobilized in a posterior splint with modified sugar tong. There is no strikethrough on the dressing Vascular: -Foot is warm to touch with CFT less than 3 seconds x 5 Neurology: -Light touch sensation tact to the digits 1 through 5 MSK: -Able to move digits without deficit to the flexor tendons -Calf is soft and nontender -Mild TTP to the proximal fibular neck Diagnosis DIAGNOSIS Left ankle bimalleolar equivalent ankle fracture with disruption of the deltoid ligament, laciniate ligament and extensor retinaculum Assessment Assessment Problems Medical Problems: (1) Dislocation of ankle, left, closed Status: Acute (2) Fracture of left proximal fibula Status: Acute (3) Unstable left ankle Status: Acute Plan Plan of Care -Explained clinical findings and intraoperative findings. Given the amount of ankle joint dislocation and difficulty with reduction, two stab incisions were made to investigate integrity of the PT tendon and tibialis anterior tendon which were well documented in the literature for possible tendon incarceration, rupture in the setting of unstable and difficult talar reduction. Intraoperative finding was negative for any tendon rupture or degeneration. However, the deltoid ligament and extensor retinaculum were significantly compromised. The proximal fibula fracture was repaired indirectly through the syndesmotic repair with 2 screws. Patient was educated that the proximal fracture was well aligned, does not bear weight and would heal uneventfully with distal stabilization from the surgery. -Given the stab incision to the medial ankle at the ER to assist adequate talar reduction, I think is reasonable to treat this as an open fracture for 2-day course of IV Ancef. There is no significant concern for anaerobes or gram- negative coverage -Strict nonweightbearing to left lower extremity -PT/OT: Okay for upper body mobility but be careful with the proximal fibula fracture, just below the knee., Strict nonweightbearing to left lower extremity -Pain management: Gabapentin, Tylenol, Hulbert as needed -DVT prophylaxis: Per internal medicine Dispo: Complete 2-day course of IV Ancef, possible Monday discharge to home. Patient will live with family member during recovery. I will plan for dressing change on Monday before discharge. Our office will call for postoperative follow-up in 2 weeks. Comment Review of Relevant I have reviewed the following items wes (where applicable) has been applied. Labs Laboratory Tests Test 03/09/21 17:27 03/09/21 17:30 03/09/21 17:34 03/10/21 07:10 SARS-CoV-2 RNA (ELEN) Negative (Negative) SARS-CoV-2 Antigen (Rapid) Negative (NEGATIVE) White Blood Count 7.2 x10^3/uL (4.0-11.0) 6.0 x10^3/uL (4.0-11.0) Red Blood Count 4.27 x10^6/uL (4.30-5.70) 4.11 x10^6/uL (4.30-5.70) Hemoglobin 14.4 g/dL (13.0-17.5) 13.8 g/dL (13.0-17.5) Hematocrit 41.8 % (39.0-53.0) 40.6 % (39.0-53.0) Mean Corpuscular Volume 98 fL (79-100) 99 fL (79-100) Mean Corpuscular Hemoglobin 34 pg (25-35) 34 pg (25-35) Mean Corpuscular Hemoglobin Concent 35 g/dL (31-37) 34 g/dL (31-37) Red Cell Distribution Width 14.2 % (11.5-14.5) 14.4 % (11.5-14.5) Platelet Count 126 x10^3/uL (140-400) 118 x10^3/uL (140-400) Neutrophils (%) (Auto) 72 % (31-73) Lymphocytes (%) (Auto) 15 % (24-48) Monocytes (%) (Auto) 12 % (0-9) Eosinophils (%) (Auto) 0 % (0-3) Basophils (%) (Auto) 1 % (0-3) Neutrophils # (Auto) 5.2 x10^3/uL (1.8-7.7) Lymphocytes # (Auto) 1.1 x10^3/uL (1.0-4.8) Monocytes # (Auto) 0.9 x10^3/uL (0.0-1.1) Eosinophils # (Auto) 0.0 x10^3/uL (0.0-0.7) Basophils # (Auto) 0.0 x10^3/uL (0.0-0.2) Sodium Level 140 mmol/L (136-145) 139 mmol/L (136-145) Potassium Level 4.3 mmol/L (3.5-5.1) 4.2 mmol/L (3.5-5.1) Chloride Level 105 mmol/L (98-107) 103 mmol/L (98-107) Carbon Dioxide Level 26 mmol/L (21-32) 29 mmol/L (21-32) Anion Gap 9 (6-14) 7 (6-14) Blood Urea Nitrogen 6 mg/dL (8-26) 8 mg/dL (8-26) Creatinine 0.6 mg/dL (0.7-1.3) 0.7 mg/dL (0.7-1.3) Estimated GFR (Cockcroft-Gault) 142.6 119.4 BUN/Creatinine Ratio 10 (6-20) 11 (6-20) Glucose Level 99 mg/dL (70-99) 153 mg/dL (70-99) Calcium Level 7.3 mg/dL (8.5-10.1) 7.6 mg/dL (8.5-10.1) Ferritin 710 ng/mL (26-388) Total Bilirubin 0.7 mg/dL (0.2-1.0) 0.9 mg/dL (0.2-1.0) Aspartate Amino Transf (AST/SGOT) 174 U/L (15-37) 155 U/L (15-37) Alanine Aminotransferase (ALT/SGPT) 181 U/L (16-63) 163 U/L (16-63) Alkaline Phosphatase 108 U/L (46-116) 95 U/L (46-116) Creatine Kinase 274 U/L (39-308) Total Protein 6.6 g/dL (6.4-8.2) 6.8 g/dL (6.4-8.2) Albumin 3.4 g/dL (3.4-5.0) 3.2 g/dL (3.4-5.0) Albumin/Globulin Ratio 1.1 (1.0-1.7) 0.9 (1.0-1.7) 25-Hydroxy Vitamin D Total 25.3 ng/mL (30-100) Thyroid Stimulating Hormone (TSH) 3.687 uIU/mL (0.358-3.74) Laboratory Tests Test 03/10/21 07:10 White Blood Count 6.0 x10^3/uL (4.0-11.0) Red Blood Count 4.11 x10^6/uL (4.30-5.70) Hemoglobin 13.8 g/dL (13.0-17.5) Hematocrit 40.6 % (39.0-53.0) Mean Corpuscular Volume 99 fL (79-100) Mean Corpuscular Hemoglobin 34 pg (25-35) Mean Corpuscular Hemoglobin Concent 34 g/dL (31-37) Red Cell Distribution Width 14.4 % (11.5-14.5) Platelet Count 118 x10^3/uL (140-400) Sodium Level 139 mmol/L (136-145) Potassium Level 4.2 mmol/L (3.5-5.1) Chloride Level 103 mmol/L (98-107) Carbon Dioxide Level 29 mmol/L (21-32) Anion Gap 7 (6-14) Blood Urea Nitrogen 8 mg/dL (8-26) Creatinine 0.7 mg/dL (0.7-1.3) Estimated GFR (Cockcroft-Gault) 119.4 BUN/Creatinine Ratio 11 (6-20) Glucose Level 153 mg/dL (70-99) Calcium Level 7.6 mg/dL (8.5-10.1) Total Bilirubin 0.9 mg/dL (0.2-1.0) Aspartate Amino Transf (AST/SGOT) 155 U/L (15-37) Alanine Aminotransferase (ALT/SGPT) 163 U/L (16-63) Alkaline Phosphatase 95 U/L (46-116) Total Protein 6.8 g/dL (6.4-8.2) Albumin 3.2 g/dL (3.4-5.0) Albumin/Globulin Ratio 0.9 (1.0-1.7) Medications Current Medications Propofol (Diprivan) 200 mg 1X ONCE IV Last administered on 03/09/21at 16:23; Start 03/09/21 at 16:15; Stop 03/09/21 at 16:18; Status DC Sodium Chloride 1,000 ml @ 1,000 mls/hr 1X ONCE IV Last administered on 03/09/21at 16:26; Start 03/09/21 at 16:15; Stop 03/09/21 at 17:14; Status DC Ondansetron HCl (Zofran) 4 mg 1X ONCE IVP Last administered on 03/09/21at 16:19; Start 03/09/21 at 16:15; Stop 03/09/21 at 16:18; Status DC Fentanyl Citrate (Fentanyl 2ml Vial) 100 mcg STK-MED ONCE .ROUTE ; Start 05/18 at 16:29; Stop 03/09/21 at 16:29; Status DC Propofol (Diprivan) 200 mg 1X ONCE IV ; Start 03/09/21 at 16:45; Stop 05/18 at 17:17; Status DC Fentanyl Citrate (Fentanyl 2ml Vial) 100 mcg STK-MED ONCE .ROUTE ; Start 03/09/21 at 16:42; Stop 03/09/21 at 16:43; Status DC Cefazolin Sodium/ Dextrose 50 ml @ 100 mls/hr 1X ONCE IV Last administered on 03/09/21at 17:26; Start 03/09/21 at 17:00; Stop 03/09/21 at 17:29; Status DC Fentanyl Citrate (Fentanyl 2ml Vial) 100 mcg 1X ONCE IVP Last administered on 03/09/21at 16:43; Start 03/09/21 at 17:15; Stop 03/09/21 at 17:18; Status DC Acetaminophen (Tylenol) 650 mg PRN Q6HRS PRN PO MILD PAIN / TEMP > 100.3'F; Start 03/09/21 at 17:15; Stop 03/09/21 at 20:23; Status DC Ondansetron HCl (Zofran) 4 mg PRN Q4HRS PRN IVP NAUSEA/VOMITING; Start 03/09/21 at 17:15; Stop 03/09/21 at 20:23; Status DC Fentanyl Citrate (Fentanyl 2ml Vial) 25 mcg PRN Q3HRS PRN IVP SEVERE PAIN 7-10 Last administered on 03/10/21at 05:09; Start 03/09/21 at 17:15 Acetaminophen/ Hydrocodone Bitart (Lortab 5/325) 1 tab PRN Q4HRS PRN PO MILD PAIN, 2ND CHOICE; Start 03/09/21 at 17:30; Stop 03/09/21 at 20:23; Status DC Acetaminophen/ Hydrocodone Bitart (Lortab 5/325) 2 tab PRN Q4HRS PRN PO MODERATE PAIN, SEVERE PAIN; Start 03/09/21 at 17:30; Stop 03/09/21 at 20:23; Status DC Senna/Docusate Sodium (Senna Plus) 1 tab BID PO ; Start 03/09/21 at 21:00; Stop 03/09/21 at 20:23; Status DC Magnesium Hydroxide (Milk Of Magnesia) 2,400 mg PRN Q12HR PRN PO CONSTIPATION, 2ND CHOICE; Start 03/09/21 at 17:30 Bupivacaine HCl (Sensorcaine Mpf 0.25%) 30 ml STK-MED ONCE .ROUTE Last administered on 03/09/21at 18:57; Start 03/09/21 at 17:58; Stop 03/09/21 at 17:58; Status DC Glycopyrrolate (Robinul) 1 mg STK-MED ONCE .ROUTE ; Start 03/09/21 at 18:06; Stop 03/09/21 at 18:06; Status DC Propofol (Diprivan) 200 mg STK-MED ONCE IV ; Start 03/09/21 at 18:06; Stop 03/09/21 at 18:07; Status DC Lidocaine HCl (Lidocaine Pf 2% Vial) 5 ml STK-MED ONCE .ROUTE ; Start 03/09/21 at 18:07; Stop 03/09/21 at 18:07; Status DC Dexamethasone Sodium Phosphate (Decadron) 4 mg STK-MED ONCE .ROUTE ; Start 03/09/21 at 18:07; Stop 03/09/21 at 18:07; Status DC Ondansetron HCl (Zofran) 4 mg STK-MED ONCE .ROUTE ; Start 03/09/21 at 18:07; Stop 03/09/21 at 18:07; Status DC Rocuronium [place] (Zemuron) 50 mg STK-MED ONCE .ROUTE ; Start 03/09/21 at 18:07; Stop 03/09/21 at 18:07; Status DC Succinylcholine Chloride (Anectine) 200 mg STK-MED ONCE .ROUTE ; Start 03/09/21 at 18:08; Stop 03/09/21 at 18:08; Status DC Fentanyl Citrate (Fentanyl 2ml Vial) 100 mcg STK-MED ONCE .ROUTE ; Start 03/09/21 at 18:08; Stop 03/09/21 at 18:08; Status DC Fentanyl Citrate (Fentanyl 2ml Vial) 100 mcg STK-MED ONCE .ROUTE ; Start 03/09/21 at 18:14; Stop 03/09/21 at 18:14; Status DC Midazolam HCl (Versed) 2 mg STK-MED ONCE .ROUTE ; Start 03/09/21 at 18:20; Stop 03/09/21 at 18:20; Status DC Fentanyl Citrate (Fentanyl 2ml Vial) 25 mcg PRN Q5MIN PRN IVP MILD PAIN 1-3; Start 03/09/21 at 18:30; Stop 03/09/21 at 20:23; Status DC Fentanyl Citrate (Fentanyl 2ml Vial) 50 mcg PRN Q5MIN PRN IVP MODERATE PAIN 4-6 Last administered on 03/09/21at 18:33; Start 03/09/21 at 18:30; Stop 03/09/21 at 20:23; Status DC Morphine Sulfate (Morphine Sulfate) 1 mg PRN Q10MIN PRN IVP SEVERE PAIN 7-10; Start 03/09/21 at 18:30; Stop 03/09/21 at 20:23; Status DC Ringer's Solution 1,000 ml @ 30 mls/hr Q24H IV Last administered on 03/09/21at 18:30; Start 03/09/21 at 18:30; Stop 03/09/21 at 20:23; Status DC Hydromorphone HCl (Dilaudid) 0.5 mg PRN Q10MIN PRN IVP SEVERE PAIN 7-10, 2nd CHOICE; Start 03/09/21 at 18:30; Stop 03/10/21 at 02:00; Status DC Prochlorperazine Edisylate (Compazine) 5 mg PACU PRN PRN IVP NAUSEA, MRX1; Start 03/09/21 at 18:30; Stop 03/09/21 at 20:23; Status DC Famotidine (Pepcid Vial) 20 mg STK-MED ONCE .ROUTE ; Start 03/09/21 at 18:46; Stop 03/09/21 at 18:47; Status DC Morphine Sulfate (Morphine Sulfate) 10 mg STK-MED ONCE .ROUTE ; Start 03/09/21 at 18:47; Stop 03/09/21 at 18:47; Status DC Ketorolac Tromethamine (Toradol 30mg Vial) 30 mg STK-MED ONCE .ROUTE ; Start 03/09/21 at 19:14; Stop 03/09/21 at 19:15; Status DC Sevoflurane (Ultane) 60 ml STK-MED ONCE IH ; Start 03/09/21 at 19:43; Stop 03/09/21 at 19:43; Status DC Fentanyl Citrate (Fentanyl 2ml Vial) 100 mcg STK-MED ONCE .ROUTE ; Start 03/09/21 at 19:50; Stop 03/09/21 at 19:50; Status DC Morphine Sulfate (Morphine Sulfate) 2 mg STK-MED ONCE .ROUTE ; Start 03/09/21 at 20:10; Stop 03/09/21 at 20:10; Status DC Tramadol HCl (Ultram) 50 mg PRN QID PRN PO MILD PAIN 1-3; Start 03/09/21 at 20:15 Senna/Docusate Sodium (Senna Plus) 1 tab DAILY PO Last administered on 02/26 08/16at 07:41; Start 03/10/21 at 09:00 Polyethylene Glycol (miraLAX PACKET) 17 gm PRN DAILY PRN PO CONSTIPATION, 1ST CHOICE; Start 03/09/21 at 20:15 Ondansetron HCl (Zofran) 4 mg PRN Q4HRS PRN IVP NAUSEA/VOMITING; Start 03/09/21 at 20:15 Dextrose (Dextrose 50%-Water Syringe) 12.5 gm PRN Q15MIN PRN IV SEE COMMENTS; Start 03/09/21 at 20:15 Gabapentin (Neurontin) 100 mg TID PO Last administered on 03/10/21at 14:17; Start 03/09/21 at 21:00 Acetaminophen (Tylenol) 650 mg TID PO Last administered on 03/10/21at 14:18; Start 03/09/21 at 21:00 Oxycodone/ Acetaminophen (Percocet 5/325) 1 tab QIDPRN PRN PO SEVERE PAIN Last administered on 03/10/21at 17:23; Start 03/09/21 at 20:15 Cefazolin Sodium/ Dextrose 50 ml @ 100 mls/hr Q8HRS IV Last administered on 03/10/21at 14:17; Start 03/09/21 at 22:00; Stop 03/12/21 at 21:59 Quetiapine Fumarate (SEROquel) 50 mg QHS PO Last administered on 03/09/21at 21:18; Start 03/09/21 at 21:15 Ergocalciferol (Vitamin D2) 50,000 unit WEEKLY PO Last administered on 1at 14:17; Start 03/10/21 at 14:00 Vitals/I & O Vital Sign - Last 24 Hours 03/09/21 03/09/21 03/09/21 03/09/21 18:12 20:10 20:10 20:25 Temp 99.5 98.0 99.5 98.0 Pulse 102 117 110 Resp 22 20 B/P (MAP) 165/107 170/98 155/86 Pulse Ox 94 99 100 O2 Delivery Room Air Mask Simple Mask Simple Mask O2 Flow Rate 10 10 10 03/09/21 03/09/21 03/09/21 03/09/21 20:40 21:05 21:20 21:49 Temp 98.4 98.7 98.4 98.7 Pulse 110 105 96 Resp 20 20 20 20 B/P (MAP) 159/83 152/91 (111) 149/93 (111) Pulse Ox 91 98 93 O2 Delivery Room Air Room Air Room Air Room Air 03/09/21 03/09/21 03/09/21 03/09/21 21:50 22:50 23:00 23:49 Temp 97.3 98.0 97.3 98.0 Pulse 99 108 Resp 20 18 20 B/P (MAP) 144/91 (108) 138/83 (101) Pulse Ox 99 93 O2 Delivery Room Air Room Air Room Air Room Air 03/09/21 03/10/21 03/10/21 03/10/21 23:50 00:19 03:00 05:09 Temp 97.8 98.2 97.8 98.2 Pulse 92 89 Resp 16 20 18 20 B/P (MAP) 122/77 (92) 129/84 (99) Pulse Ox 93 93 96 O2 Delivery Room Air Room Air Room Air Room Air 03/10/21 03/10/21 03/10/21 03/10/21 07:00 08:00 11:00 15:00 Temp 98.2 98.2 98.5 98.2 98.2 98.5 Pulse 83 103 105 Resp 18 18 18 B/P (MAP) 150/101 (117) 148/95 (112) 162/99 (120) Pulse Ox 93 94 95 O2 Delivery Room Air Room Air Room Air Room Air Intake and Output 03/09/21 03/09/21 03/10/21 15:00 23:00 07:00 Intake Total 1050 ml 480 ml Output Total 5 ml 750 ml Balance 1045 ml -270 ml Justifications for Admission General Conditions Poss tachycardia?: Yes Justification for admission: Patient has tachycardia (> 100 beats per minute) which is not readily corrected by appropriate treatment within 12 to 24 hours. Other Justification GARRICK SAWANT DPM Mar 10, 2021 17:57
[2021-03-10 19:03] VITALS: BP 142/86
[2021-03-10] MEDS: traMADol 50 MG TABLET PO PRN (19:57)
[2021-03-10] MEDS: QUEtiapine 25 MG TABLET. PO SCH (20:02)
[2021-03-11] VITALS (7 sets, daily range): BP systolic 132–184; BP diastolic 82–116
[2021-03-11] MEDS: fentaNYL PF VIAL 100 MCG/2 ML VIAL IVP PRN ×5 (01:50→22:55)
[2021-03-11] MEDS: oxyCODONE/APAP 5/325 1 TAB TABLET PO PRN ×4 (05:28→22:56)
[2021-03-11] MEDS: GABAPENTIN 100 MG CAPSULE. PO SCH ×3 (08:02→20:04)
[2021-03-11] MEDS: ACETAMINOPHEN 325 MG TABLET. PO SCH ×3 (08:02→21:00)
[2021-03-11] MEDS: SENNOSIDES/DOCUSATE 8.6/50MG TABLET. PO SCH (08:02)
[2021-03-11] MEDS: traMADol 50 MG TABLET PO PRN ×3 (08:05→20:04)
[2021-03-11 08:09] LABS: BASO % 1 % (0-3); EOS % 1 % (0-3); HEMATOCRIT 39.5 % (39.0-53.0); HEMOGLOBIN 13.4 g/dL (13.0-17.5); LYMPH # 1.2 x10^3/uL (1.0-4.8); LYMPH % 16 % (24-48); MEAN CORPUSCULAR HEMOGLOBIN 34 pg (25-35); MEAN CORPUSCULAR HGB CONC 34 g/dL (31-37); MEAN CORPUSCULAR VOLUME 99 fL (79-100); MONO # 0.9 x10^3/uL (0.0-1.1); MONO % 13 % (0-9); NEUT # 5.1 x10^3/uL (1.8-7.7); NEUT % 70 % (31-73); PLATELET COUNT 115 x10^3/uL (140-400); RED CELL DISTRIBUTION WIDTH 14.2 % (11.5-14.5); WHITE BLOOD COUNT 7.2 x10^3/uL (4.0-11.0)
[2021-03-11] MEDS ORDERED: GABA300C18 PO (12:09)
[2021-03-11] MEDS ORDERED: QUET25TA3 PO (12:09)
[2021-03-11] MEDS ORDERED: OXYC1TAB15 PO (12:09)
[2021-03-11] MEDS ORDERED: POLY17PO52 PO (12:09)
[2021-03-11] MEDS ORDERED: MV-M1TAB7 PO (12:09)
[2021-03-11] MEDS ORDERED: IBUP-1007 PO (12:15)
--- NOTE | 2021-03-11 12:18 | PDOC3 ---
Discharge Summary Visit Information Date of Admission: Mar 09, 2021 Date of Discharge: Mar 11, 2021 Final Diagnosis Dislocation of ankle, left, closed - unstable ankle unable to reduce despite multiple attempts 0- treated with antibiotics as open fracture due to emergent incision made Transaminitis - unclear etiology, patient denies alcohol use Thrombocytopenia - related to seroquel. will trend Vitamin D insufficiency - daily replacement Insomnia - on seroquel for sleep Problems Medical Problems: (1) Dislocation of ankle, left, closed Status: Acute (2) Fracture of left proximal fibula Status: Acute (3) Unstable left ankle Status: Acute Brief Hospital Course Allergies Allergies Coded Allergies Type Severity Reaction Last Updated Verified No Known Drug Allergies 03/09/21 No Vital Signs Vital Signs Date Time Temp Pulse Resp B/P (MAP) Pulse Ox O2 Delivery O2 Flow Rate FiO2 03/11/21 10:53 Room Air 03/11/21 10:51 98.2 108 20 148/89 (108) 95 98.2 Lab Results Laboratory Tests Test 03/09/21 17:27 03/09/21 17:30 03/09/21 17:34 03/10/21 07:10 SARS-CoV-2 RNA (ELEN) Negative (Negative) SARS-CoV-2 Antigen (Rapid) Negative (NEGATIVE) White Blood Count 7.2 x10^3/uL (4.0-11.0) 6.0 x10^3/uL (4.0-11.0) Red Blood Count 4.27 x10^6/uL (4.30-5.70) 4.11 x10^6/uL (4.30-5.70) Hemoglobin 14.4 g/dL (13.0-17.5) 13.8 g/dL (13.0-17.5) Hematocrit 41.8 % (39.0-53.0) 40.6 % (39.0-53.0) Mean Corpuscular Volume 98 fL (79-100) 99 fL (79-100) Mean Corpuscular Hemoglobin 34 pg (25-35) 34 pg (25-35) Mean Corpuscular Hemoglobin Concent 35 g/dL (31-37) 34 g/dL (31-37) Red Cell Distribution Width 14.2 % (11.5-14.5) 14.4 % (11.5-14.5) Platelet Count 126 x10^3/uL (140-400) 118 x10^3/uL (140-400) Neutrophils (%) (Auto) 72 % (31-73) Lymphocytes (%) (Auto) 15 % (24-48) Monocytes (%) (Auto) 12 % (0-9) Eosinophils (%) (Auto) 0 % (0-3) Basophils (%) (Auto) 1 % (0-3) Neutrophils # (Auto) 5.2 x10^3/uL (1.8-7.7) Lymphocytes # (Auto) 1.1 x10^3/uL (1.0-4.8) Monocytes # (Auto) 0.9 x10^3/uL (0.0-1.1) Eosinophils # (Auto) 0.0 x10^3/uL (0.0-0.7) Basophils # (Auto) 0.0 x10^3/uL (0.0-0.2) Sodium Level 140 mmol/L (136-145) 139 mmol/L (136-145) Potassium Level 4.3 mmol/L (3.5-5.1) 4.2 mmol/L (3.5-5.1) Chloride Level 105 mmol/L (98-107) 103 mmol/L (98-107) Carbon Dioxide Level 26 mmol/L (21-32) 29 mmol/L (21-32) Anion Gap 9 (6-14) 7 (6-14) Blood Urea Nitrogen 6 mg/dL (8-26) 8 mg/dL (8-26) Creatinine 0.6 mg/dL (0.7-1.3) 0.7 mg/dL (0.7-1.3) Estimated GFR (Cockcroft-Gault) 142.6 119.4 BUN/Creatinine Ratio 10 (6-20) 11 (6-20) Glucose Level 99 mg/dL (70-99) 153 mg/dL (70-99) Calcium Level 7.3 mg/dL (8.5-10.1) 7.6 mg/dL (8.5-10.1) Ferritin 710 ng/mL (26-388) Total Bilirubin 0.7 mg/dL (0.2-1.0) 0.9 mg/dL (0.2-1.0) Aspartate Amino Transf (AST/SGOT) 174 U/L (15-37) 155 U/L (15-37) Alanine Aminotransferase (ALT/SGPT) 181 U/L (16-63) 163 U/L (16-63) Alkaline Phosphatase 108 U/L (46-116) 95 U/L (46-116) Creatine Kinase 274 U/L (39-308) Total Protein 6.6 g/dL (6.4-8.2) 6.8 g/dL (6.4-8.2) Albumin 3.4 g/dL (3.4-5.0) 3.2 g/dL (3.4-5.0) Albumin/Globulin Ratio 1.1 (1.0-1.7) 0.9 (1.0-1.7) 25-Hydroxy Vitamin D Total 25.3 ng/mL (30-100) Thyroid Stimulating Hormone (TSH) 3.687 uIU/mL (0.358-3.74) Test 03/11/21 06:10 White Blood Count 7.2 x10^3/uL (4.0-11.0) Red Blood Count 4.00 x10^6/uL (4.30-5.70) Hemoglobin 13.4 g/dL (13.0-17.5) Hematocrit 39.5 % (39.0-53.0) Mean Corpuscular Volume 99 fL (79-100) Mean Corpuscular Hemoglobin 34 pg (25-35) Mean Corpuscular Hemoglobin Concent 34 g/dL (31-37) Red Cell Distribution Width 14.2 % (11.5-14.5) Platelet Count 115 x10^3/uL (140-400) Neutrophils (%) (Auto) 70 % (31-73) Lymphocytes (%) (Auto) 16 % (24-48) Monocytes (%) (Auto) 13 % (0-9) Eosinophils (%) (Auto) 1 % (0-3) Basophils (%) (Auto) 1 % (0-3) Neutrophils # (Auto) 5.1 x10^3/uL (1.8-7.7) Lymphocytes # (Auto) 1.2 x10^3/uL (1.0-4.8) Monocytes # (Auto) 0.9 x10^3/uL (0.0-1.1) Eosinophils # (Auto) 0.0 x10^3/uL (0.0-0.7) Basophils # (Auto) 0.0 x10^3/uL (0.0-0.2) Laboratory Tests Test 03/11/21 06:10 White Blood Count 7.2 x10^3/uL (4.0-11.0) Red Blood Count 4.00 x10^6/uL (4.30-5.70) Hemoglobin 13.4 g/dL (13.0-17.5) Hematocrit 39.5 % (39.0-53.0) Mean Corpuscular Volume 99 fL (79-100) Mean Corpuscular Hemoglobin 34 pg (25-35) Mean Corpuscular Hemoglobin Concent 34 g/dL (31-37) Red Cell Distribution Width 14.2 % (11.5-14.5) Platelet Count 115 x10^3/uL (140-400) Neutrophils (%) (Auto) 70 % (31-73) Lymphocytes (%) (Auto) 16 % (24-48) Monocytes (%) (Auto) 13 % (0-9) Eosinophils (%) (Auto) 1 % (0-3) Basophils (%) (Auto) 1 % (0-3) Neutrophils # (Auto) 5.1 x10^3/uL (1.8-7.7) Lymphocytes # (Auto) 1.2 x10^3/uL (1.0-4.8) Monocytes # (Auto) 0.9 x10^3/uL (0.0-1.1) Eosinophils # (Auto) 0.0 x10^3/uL (0.0-0.7) Basophils # (Auto) 0.0 x10^3/uL (0.0-0.2) Brief Hospital Course Mr. 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 Workman comp case. left ankle fracture, extensive injury , req surg, Dr. Mojica, on 03/09,. left ankle syndesmotic repair, deltoid ligament repair in the setting of a bimalleolar [place] ankle fracture Discharge Information Condition at Discharge: Improved Follow Up: Weeks Disposition/Orders: D/C to Home Scheduled PRN Oxycodone/Apap 5-325 (Percocet 5-325 Mg Tablet ) 1 Each Tablet, 1 TAB PO QIDPRN PRN for SEVERE PAIN, #24 Prescribed by: TRI FRANCES on 03/11/21 1213 Patient Instructions Patient Instructions time > 30min Justicifation of Admission Dx: Justifications for Admission: Justification of Admission Dx: Yes (ankle fracture, unstable, high risk) TRI FRANCES MD Mar 11, 2021 12:18
[2021-03-11] MEDS ORDERED: KETOROLAC 30 MG/ML VIAL. IVP ONE (12:30)
[2021-03-11] MEDS: QUEtiapine 25 MG TABLET. PO SCH (20:04)
[2021-03-12 03:15] VITALS: BP 141/74
[2021-03-12] MEDS: traMADol 50 MG TABLET PO PRN (04:10)
[2021-03-12] MEDS: fentaNYL PF VIAL 100 MCG/2 ML VIAL IVP PRN (04:11)
[2021-03-12] MEDS: oxyCODONE/APAP 5/325 1 TAB TABLET PO PRN ×2 (06:07→10:08)
[2021-03-12 07:00] VITALS: BP 141/72
--- NOTE | 2021-03-12 08:16 | PDOC ---
[employer] PROGRESS NOTE Date of Service DOS: DATE: 03/12/21 TIME: 08:14 Chief Complaint Chief Complaint LATE ENTRY, pt did not discharge, Dr. Mojica wanted more IV abx, pt seen and discussed and eval on 03.11, Left ankle bimalleolar equivalent ankle fracture with disruption of the deltoid ligament, laciniate ligament and extensor retinaculum Dislocation of ankle, left, closed - unstable ankle unable to reduce despite multiple attempts. to OR on admit, urgent surgery Transaminitis - unclear etiology, patient denies alcohol use Thrombocytopenia - related to seroquel. will trend Vitamin D insufficiency - daily cholecalciferol replacement Insomnia - on seroquel for sleep Vitals/I&O Vitals/I&O: Vital Signs Date Time Temp Pulse Resp B/P (MAP) Pulse Ox O2 Delivery O2 Flow Rate FiO2 03/12/21 07:51 Room Air 03/12/21 07:00 97.9 89 18 141/72 (95) 98 97.9 I & O 03/11/21 03/11/21 03/12/21 15:00 23:00 07:00 Intake Total 360 ml Output Total 250 ml Balance 110 ml Physical Exam General: Alert, Oriented X3, Cooperative, mild distress Heart: Regular rate, No murmurs Lungs: Clear Abdomen: Normal bowel sounds, Soft, No tenderness, No hepatosplenomegaly, No masses Extremities: No clubbing, No cyanosis, Normal pulses, Other (left ankle swollen, splinted) Skin: No rashes, No breakdown, No significant lesion Assessment and Plan Assessmemt and Plan Problems Medical Problems: (1) Dislocation of ankle, left, closed Status: Acute (2) Fracture of left proximal fibula Status: Acute (3) Unstable left ankle Status: Acute Comment Review of Relevant I have reviewed the following items wes (where applicable) has been applied. Medications: Current Medications Medications (Trade) Dose Ordered Sig/Onur Route PRN Reason Start Time Stop Time Status Last Admin Dose Admin Ketorolac Tromethamine (Toradol 30mg Vial) 30 mg 1X ONCE IVP 03/11/21 12:30 03/11/21 12:31 DC 03/11/21 13:00 Amlodipine Besylate (Norvasc) 5 mg DAILY PO 03/11/21 21:45 03/11/21 21:54 Justifications for Admission General Conditions Poss tachycardia?: Yes Justification for admission: Patient has tachycardia (> 100 beats per minute) which is not readily corrected by appropriate treatment within 12 to 24 hours. Other Justification TRI FRANCES MD Mar 12, 2021 08:16
[2021-03-12] MEDS: ACETAMINOPHEN 325 MG TABLET. PO SCH (08:51)
[2021-03-12] MEDS: GABAPENTIN 100 MG CAPSULE. PO SCH (08:51)
[2021-03-12] MEDS: SENNOSIDES/DOCUSATE 8.6/50MG TABLET. PO SCH (08:51)
--- NOTE | 2021-03-12 09:47 | PDOC ---
PROGRESS NOTES Date of Service DATE: 03/12/21 TIME: 09:40 Subjective Subjective 2 days status post of a left ankle bimalleolar fracture repair and explorative PT and tibialis anterior tendon surgery Patient was seen at bedside. Denies overnight events or constitutional symptoms. The dressing has been kept clean and dry and tolerated well. The surgical foot is elevated on two pillows with the toes near the heart level. The pain is well managed with current medicine, and rated 4/10, throbbing and sharp localized to anterior ankle. He does relate mild discomfort to the proximal fibula fracture site without any gross instability. Otherwise, patient has been working well with physical therapy. He denies any constant numbness and tingling sensation to left lower extremity. Objective Objective Vital Signs Date Time Temp Pulse Resp B/P (MAP) Pulse Ox O2 Delivery O2 Flow Rate FiO2 03/12/21 08:51 89 141/72 03/12/21 07:51 Room Air 03/12/21 07:00 97.9 18 98 97.9 03/09/21 20:25 10 Intake and Output 03/12/21 07:00 Intake Total 360 ml Output Total 250 ml Balance 110 ml Intake Oral 360 ml Output Urine Total 250 ml # Voids 1 # Bowel Movements 1 Physical Exam Physical Exam General: Pleasant without apparent distress, AOx3 Left lower extremity focused Dermatology: -Upon dressing removal, sutures are intact without signs of discharge, proximal streaking, fluctuance or dehiscence -Minimal to no periwound erythema, improves 100% by elevation without fluctuance Vascular: -DP/PT palpable -Foot is warm to touch with CFT less than 3 seconds x 5 Neurology: -Light touch sensation intact to the level of digits 1 through 5 MSK: -[+] Minimal to no TTP at the surgical site near PT, TA or the syndesmotic joint -Able to move digits -Muscle strength deferred -Calf is soft and nontender -Foot compartment is soft to compress -Mild TTP to the proximal fibular head neck without gross instability upon gentle stress Diagnosis DIAGNOSIS Left bimalleolar ankle fracture open reduction and internal fixation of through syndesmotic stabilization. Due to the difficulty with reduction and gross instability, explorative procedures on TA, PT tendons Assessment Assessment Problems Medical Problems: (1) Dislocation of ankle, left, closed Status: Acute (2) Fracture of left proximal fibula Status: Acute (3) Unstable left ankle Status: Acute Plan Plan of Care -Clinically, there are no signs of postoperative infection. The surgical sites were dressed with Betadine soaked Adaptic, sterile gauze. The left lower extremity was immobilized in a well-padded Jalloh compression splint with a sugar tong modification with ankle held near 90 degrees. Afterwards, digital perfusion 1 through 5 were adequate -Remain strict nonweightbearing to left lower extremity -Elevate left lower extremity with toes above the nose 45 minutes/h during the day -Keep the splint clean, dry and intact until next visit in my office -Ice behind the left knee as needed 15 minutes/h -DVT prophylaxis with aspirin 81 mg daily until weightbearing -S/p 2-day IV Ancef, please discharge with Keflex for 7 days -Please prescribe pain medicine: Gabapentin 100 mg 3 times daily for 10 days, [place] 5/325mg, every 6 hours as needed, 20 tablets. May supplement with Tylenol throughout the day [max dose 4000 mg daily] Dispo: If the WBC returns normal and patient remains asymptomatic for any constitutional symptoms, he may be discharged home today with the prescriptions admission as above. Our office will call for postoperative follow-up as an outpatient. Comment Review of Relevant I have reviewed the following items wes (where applicable) has been applied. Labs Laboratory Tests Test 03/11/21 06:10 White Blood Count 7.2 x10^3/uL (4.0-11.0) Red Blood Count 4.00 x10^6/uL (4.30-5.70) Hemoglobin 13.4 g/dL (13.0-17.5) Hematocrit 39.5 % (39.0-53.0) Mean Corpuscular Volume 99 fL (79-100) Mean Corpuscular Hemoglobin 34 pg (25-35) Mean Corpuscular Hemoglobin Concent 34 g/dL (31-37) Red Cell Distribution Width 14.2 % (11.5-14.5) Platelet Count 115 x10^3/uL (140-400) Neutrophils (%) (Auto) 70 % (31-73) Lymphocytes (%) (Auto) 16 % (24-48) Monocytes (%) (Auto) 13 % (0-9) Eosinophils (%) (Auto) 1 % (0-3) Basophils (%) (Auto) 1 % (0-3) Neutrophils # (Auto) 5.1 x10^3/uL (1.8-7.7) Lymphocytes # (Auto) 1.2 x10^3/uL (1.0-4.8) Monocytes # (Auto) 0.9 x10^3/uL (0.0-1.1) Eosinophils # (Auto) 0.0 x10^3/uL (0.0-0.7) Basophils # (Auto) 0.0 x10^3/uL (0.0-0.2) Medications Current Medications Propofol (Diprivan) 200 mg 1X ONCE IV Last administered on 03/09/21at 16:23; Start 03/09/21 at 16:15; Stop 03/09/21 at 16:18; Status DC Sodium Chloride 1,000 ml @ 1,000 mls/hr 1X ONCE IV Last administered on 03/09/21at 16:26; Start 03/09/21 at 16:15; Stop 03/09/21 at 17:14; Status DC Ondansetron HCl (Zofran) 4 mg 1X ONCE IVP Last administered on 03/09/21at 16:19; Start 03/09/21 at 16:15; Stop 03/09/21 at 16:18; Status DC Fentanyl Citrate (Fentanyl 2ml Vial) 100 mcg STK-MED ONCE .ROUTE ; Start 03/09/21 at 16:29; Stop 03/09/21 at 16:29; Status DC Propofol (Diprivan) 200 mg 1X ONCE IV ; Start 03/09/21 at 16:45; Stop 03/09/21 at 17:17; Status DC Fentanyl Citrate (Fentanyl 2ml Vial) 100 mcg STK-MED ONCE .ROUTE ; Start 03/09/21 at 16:42; Stop 03/09/21 at 16:43; Status DC Cefazolin Sodium/ Dextrose 50 ml @ 100 mls/hr 1X ONCE IV Last administered on 03/09/21at 17:26; Start 03/09/21 at 17:00; Stop 03/09/21 at 17:29; Status DC Fentanyl Citrate (Fentanyl 2ml Vial) 100 mcg 1X ONCE IVP Last administered on 03/09/21at 16:43; Start 03/09/21 at 17:15; Stop 03/09/21 at 17:18; Status DC Acetaminophen (Tylenol) 650 mg PRN Q6HRS PRN PO MILD PAIN / TEMP > 100.3'F; Start 03/09/21 at 17:15; Stop 03/09/21 at 20:23; Status DC Ondansetron HCl (Zofran) 4 mg PRN Q4HRS PRN IVP NAUSEA/VOMITING; Start 03/09/21 at 17:15; Stop 03/09/21 at 20:23; Status DC Fentanyl Citrate (Fentanyl 2ml Vial) 25 mcg PRN Q3HRS PRN IVP SEVERE PAIN 7-10 Last administered on 03/12/21at 04:11; Start 03/09/21 at 17:15 Acetaminophen/ Hydrocodone Bitart (Lortab 5/325) 1 tab PRN Q4HRS PRN PO MILD PAIN, 2ND CHOICE; Start 03/09/21 at 17:30; Stop 03/09/21 at 20:23; Status DC Acetaminophen/ Hydrocodone Bitart (Lortab 5/325) 2 tab PRN Q4HRS PRN PO MODERATE PAIN, SEVERE PAIN; Start 03/09/21 at 17:30; Stop 03/09/21 at 20:23; Status DC Senna/Docusate Sodium (Senna Plus) 1 tab BID PO ; Start 03/09/21 at 21:00; Stop 03/09/21 at 20:23; Status DC Magnesium Hydroxide (Milk Of Magnesia) 2,400 mg PRN Q12HR PRN PO CONSTIPATION, 2ND CHOICE; Start 03/09/21 at 17:30 Bupivacaine HCl (Sensorcaine Mpf 0.25%) 30 ml STK-MED ONCE .ROUTE Last admini stered on 03/09/21at 18:57; Start 03/09/21 at 17:58; Stop 03/09/21 at 17:58; Status DC Glycopyrrolate (Robinul) 1 mg STK-MED ONCE .ROUTE ; Start 03/09/21 at 18:06; Stop 03/09/21 at 18:06; Status DC Propofol (Diprivan) 200 mg STK-MED ONCE IV ; Start 03/09/21 at 18:06; Stop 03/09/21 at 18:07; Status DC Lidocaine HCl (Lidocaine Pf 2% Vial) 5 ml STK-MED ONCE .ROUTE ; Start 03/09/21 at 18:07; Stop 03/09/21 at 18:07; Status DC Dexamethasone Sodium Phosphate (Decadron) 4 mg STK-MED ONCE .ROUTE ; Start 03/09/21 at 18:07; Stop 03/09/21 at 18:07; Status DC Ondansetron HCl (Zofran) 4 mg STK-MED ONCE .ROUTE ; Start 03/09/21 at 18:07; Stop 03/09/21 at 18:07; Status DC Rocuronium [place] (Zemuron) 50 mg STK-MED ONCE .ROUTE ; Start 03/09/21 at 18:07; Stop 03/09/21 at 18:07; Status DC Succinylcholine Chloride (Anectine) 200 mg STK-MED ONCE .ROUTE ; Start 03/09/21 at 18:08; Stop 03/09/21 at 18:08; Status DC Fentanyl Citrate (Fentanyl 2ml Vial) 100 mcg STK-MED ONCE .ROUTE ; Start 03/09/21 at 18:08; Stop 03/09/21 at 18:08; Status DC Fentanyl Citrate (Fentanyl 2ml Vial) 100 mcg STK-MED ONCE .ROUTE ; Start 03/09/21 at 18:14; Stop 03/09/21 at 18:14; Status DC Midazolam HCl (Versed) 2 mg STK-MED ONCE .ROUTE ; Start 03/09/21 at 18:20; Stop 03/09/21 at 18:20; Status DC Fentanyl Citrate (Fentanyl 2ml Vial) 25 mcg PRN Q5MIN PRN IVP MILD PAIN 1-3; Start 03/09/21 at 18:30; Stop 03/09/21 at 20:23; Status DC Fentanyl Citrate (Fentanyl 2ml Vial) 50 mcg PRN Q5MIN PRN IVP MODERATE PAIN 4-6 Last administered on 03/09/21at 18:33; Start 03/09/21 at 18:30; Stop 03/09/21 at 20:23; Status DC Morphine Sulfate (Morphine Sulfate) 1 mg PRN Q10MIN PRN IVP SEVERE PAIN 7-10; Start 03/09/21 at 18:30; Stop 03/09/21 at 20:23; Status DC Ringer's Solution 1,000 ml @ 30 mls/hr Q24H IV Last administered on 03/09/21at 18:30; Start 03/09/21 at 18:30; Stop 03/09/21 at 20:23; Status DC Hydromorphone HCl (Dilaudid) 0.5 mg PRN Q10MIN PRN IVP SEVERE PAIN 7-10, 2nd CHOICE; Start 03/09/21 at 18:30; Stop 03/10/21 at 02:00; Status DC Prochlorperazine Edisylate (Compazine) 5 mg PACU PRN PRN IVP NAUSEA, MRX1; Start 03/09/21 at 18:30; Stop 03/09/21 at 20:23; Status DC Famotidine (Pepcid Vial) 20 mg STK-MED ONCE .ROUTE ; Start 03/09/21 at 18:46; Stop 03/09/21 at 18:47; Status DC Morphine Sulfate (Morphine Sulfate) 10 mg STK-MED ONCE .ROUTE ; Start 03/09/21 at 18:47; Stop 03/09/21 at 18:47; Status DC Ketorolac Tromethamine (Toradol 30mg Vial) 30 mg STK-MED ONCE .ROUTE ; Start 03/09/21 at 19:14; Stop 03/09/21 at 19:15; Status DC Sevoflurane (Ultane) 60 ml STK-MED ONCE IH ; Start 03/09/21 at 19:43; Stop 03/09/21 at 19:43; Status DC Fentanyl Citrate (Fentanyl 2ml Vial) 100 mcg STK-MED ONCE .ROUTE ; Start 03/09/21 at 19:50; Stop 03/09/21 at 19:50; Status DC Morphine Sulfate (Morphine Sulfate) 2 mg STK-MED ONCE .ROUTE ; Start 03/09/21 at 20:10; Stop 03/09/21 at 20:10; Status DC Tramadol HCl (Ultram) 50 mg PRN QID PRN PO MILD PAIN 1-3 Last administered on 03/12/21at 04:10; Start 03/09/21 at 20:15 Senna/Docusate Sodium (Senna Plus) 1 tab DAILY PO Last administered on 03/11/21at 08:02; Start 03/10/21 at 09:00 Polyethylene Glycol (miraLAX PACKET) 17 gm PRN DAILY PRN PO CONSTIPATION, 1ST CHOICE; Start 03/09/21 at 20:15 Ondansetron HCl (Zofran) 4 mg PRN Q4HRS PRN IVP NAUSEA/VOMITING; Start 03/09/21 at 20:15 Dextrose (Dextrose 50%-Water Syringe) 12.5 gm PRN Q15MIN PRN IV SEE COMMENTS; Start 03/09/21 at 20:15 Gabapentin (Neurontin) 100 mg TID PO Last administered on 03/12/21at 08:51; Start 03/09/21 at 21:00 Acetaminophen (Tylenol) 650 mg TID PO Last administered on 03/12/21at 08:51; Start 03/09/21 at 21:00 Oxycodone/ Acetaminophen (Percocet 5/325) 1 tab QIDPRN PRN PO SEVERE PAIN Last administered on 03/12/21at 06:07; Start 03/09/21 at 20:15 Cefazolin Sodium/ Dextrose 50 ml @ 100 mls/hr Q8HRS IV Last administered on 03/11/21at 21:54; Start 03/09/21 at 22:00; Stop 03/11/21 at 22:27; Status DC Quetiapine Fumarate (SEROquel) 50 mg QHS PO Last administered on 03/11/21at 20:04; Start 03/09/21 at 21:15 Ergocalciferol (Vitamin D2) 50,000 unit WEEKLY PO Last administered on 03/10/21at 14:17; Start 03/10/21 at 14:00 Ketorolac Tromethamine (Toradol 30mg Vial) 30 mg 1X ONCE IVP Last administered on 03/11/21at 13:00; Start 03/11/21 at 12:30; Stop 03/11/21 at 12:31; Status DC Amlodipine Besylate (Norvasc) 5 mg DAILY PO Last administered on 03/12/21at 08:51; Start 03/11/21 at 21:45 Active Scripts Active Percocet 5-325 Mg Tablet (Oxycodone/Acetaminophen) 1 Each Tablet 1 Tab PO QIDPRN PRN Vitals/I & O Vital Sign - Last 24 Hours 03/11/21 03/11/21 03/11/21 03/11/21 10:51 10:53 11:23 14:27 Temp 98.2 98.2 Pulse 108 Resp 20 B/P (MAP) 148/89 (108) Pulse Ox 95 O2 Delivery Room Air Room Air Room Air Room Air 03/11/21 03/11/21 03/11/21 03/11/21 14:27 14:57 14:57 15:00 Temp 98.6 98.6 Pulse 99 Resp 20 B/P (MAP) 168/99 (122) Pulse Ox 95 O2 Delivery Room Air Room Air Room Air 03/11/21 03/11/21 03/11/21 03/11/21 16:52 17:34 19:47 20:00 Temp 99.1 99.1 Pulse 89 Resp 18 B/P (MAP) 184/116 (138) Pulse Ox 98 O2 Delivery Room Air Room Air Room Air Room Air 03/11/21 03/11/21 03/11/21 03/11/21 20:04 20:05 20:34 20:34 Resp 20 20 20 20 Pulse Ox 98 98 98 98 O2 Delivery Room Air Room Air Room Air Room Air 03/11/21 03/11/21 03/11/21 03/11/21 21:54 22:55 22:56 23:20 Temp 98.6 98.6 Pulse 89 117 Resp 20 20 18 B/P (MAP) 184/116 144/93 (110) Pulse Ox 98 98 94 O2 Delivery Room Air Room Air Room Air 03/11/21 03/11/21 03/12/21 03/12/21 23:25 23:25 03:15 04:10 Temp 99.0 99.0 Pulse 100 Resp 20 20 18 20 B/P (MAP) 141/74 (96) Pulse Ox 95 95 O2 Delivery Room Air Room Air Room Air Room Air 03/12/21 03/12/21 03/12/21 03/12/21 04:11 04:41 04:41 06:07 Resp 20 20 20 20 Pulse Ox 95 95 95 95 O2 Delivery Room Air Room Air Room Air Room Air 03/12/21 03/12/21 03/12/21 03/12/21 06:37 07:00 07:51 08:51 Temp 97.9 97.9 Pulse 89 89 Resp 20 18 B/P (MAP) 141/72 (95) 141/72 Pulse Ox 95 98 O2 Delivery Room Air Room Air Room Air Intake and Output 03/11/21 03/11/21 03/12/21 15:00 23:00 07:00 Intake Total 360 ml Output Total 250 ml Balance 110 ml Justifications for Admission General Conditions Poss tachycardia?: Yes Justification for admission: Patient has tachycardia (> 100 beats per minute) which is not readily corrected by appropriate treatment within 12 to 24 hours. Other Justification GARRICK SAWANT DPM Mar 12, 2021 09:47
[2021-03-12] MEDS ORDERED: KETOROLAC 30 MG/ML VIAL. IVP ONE (10:15)
[2021-03-12] MEDS ORDERED: CEPH750C9 PO (10:46)
[2021-03-12 10:47] LABS: BASO % 1 % (0-3); EOS # 0.1 x10^3/uL (0.0-0.7); EOS % 1 % (0-3); HEMATOCRIT 39.9 % (39.0-53.0); HEMOGLOBIN 13.6 g/dL (13.0-17.5); LYMPH # 0.8 x10^3/uL (1.0-4.8); LYMPH % 10 % (24-48); MEAN CORPUSCULAR HEMOGLOBIN 34 pg (25-35); MEAN CORPUSCULAR HGB CONC 34 g/dL (31-37); MEAN CORPUSCULAR VOLUME 98 fL (79-100); MONO % 13 % (0-9); NEUT # 6.2 x10^3/uL (1.8-7.7); NEUT % 76 % (31-73); PLATELET COUNT 119 x10^3/uL (140-400); RED BLOOD COUNT 4.06 x10^6/uL (4.30-5.70); RED CELL DISTRIBUTION WIDTH 14.1 % (11.5-14.5); WHITE BLOOD COUNT 8.1 x10^3/uL (4.0-11.0)
[2021-03-12 11:00] VITALS: BP 133/84
--- NOTE | 2021-03-12 14:02 | NUR ---
Pt discharged home with self care. Discharge instructions and prescriptions discussed. Pt verbalized understanding. Surgical dressing was changed by surgeon this morning. IV removed. Pt stated walker and crutches were being delivered to his house. Pt packed belongings on his own. Pt assisted to wheelchair and was secured in car with mother.
== END 2021-03-12 14:05 | disposition home or self-care (01) | DRG 502 ==
LOC: ER 15:51 → 4 NORTH 17:21
PROVIDERS: ADMIT Internal Medicine; ATTEND Internal Medicine
PROC: 0MQR0ZZ Repair Left Ankle Bursa and Ligament, Open Approach (ICD-10-PCS; 2021-03-09)
PROC: 0MQR0ZZ Repair Left Ankle Bursa and Ligament, Open Approach (ICD-10-PCS; principal; 2021-03-09 18:30)
DX: S82.842A Displaced bimalleolar fracture of left lower leg, initial encounter for closed fracture (principal); D69.6 Thrombocytopenia, unspecified; E55.9 Vitamin D deficiency, unspecified; F42.9 Obsessive-compulsive disorder, unspecified; G47.00 Insomnia, unspecified; M93.2 Osteochondritis dissecans; S93.04XA Dislocation of right ankle joint, initial encounter; S93.05XA Dislocation of left ankle joint, initial encounter; S99.929A Unspecified injury of unspecified foot, initial encounter; T43.595A Adverse effect of other antipsychotics and neuroleptics, initial encounter; X50.1XXA Overexertion from prolonged static or awkward postures, initial encounter; Z20.822 Contact with and (suspected) exposure to COVID-19; R74.01 Elevation of levels of liver transaminase levels; W18.39XA Other fall on same level, initial encounter; Y93.89 Activity, other specified; Y92.89 Other specified places as the place of occurrence of the external cause; Y99.8 Other external cause status
CPT/HCPCS: 27840; 36415; 73590; 73610; 76000; 80053; 82306; 82550; 82728; 84443; 85025; 85027; 87426; 93005; 96361; 96365; 96375; 99152; A4930; A6223; A6253; A6402; A6449; A6450; A6455; C1713; J0330; J0690; J1100; J1885; J2250; J2270; J2405; J2704; J3010; J3490; J7030; J7120; U0003; U0005; 97110-GP; 97116-GP; 97530-GP; 97535-GO; 99285-25; G0378